=== PATIENT | female | born 1955 | race Two or more races ===

== ENCOUNTER 2019-12-16 08:09 | Inpatient (IN) | payer MEDICAID, OTHER ==
[~2019-12-16] VITALS: Ht 160 cm; Wt 68.4 kg
[2019-12-16] VITALS (33 sets, daily range): BP systolic 56–124; BP diastolic 36–77
[2019-12-16] MEDS ORDERED: ETOMIDATE (2MG/ML) 20ML VIAL IV ONE ×2 (08:37→08:45)
[2019-12-16] MEDS ORDERED: SUCCINYLCHOLINE CHLORIDE 20 MG/ML 10ML VIAL IV ONE ×2 (08:37→08:45)
[2019-12-16] MEDS ORDERED: MIDAZOLAM DRIP 50 mg/50mL 50 ML IV ONE (08:39)
[2019-12-16] MEDS ORDERED: PIPERACILLIN-TAZOB 3.375GM 100 ML IV ONE (09:00)
[2019-12-16] MEDS: MIDAZOLAM DRIP 50 mg/50mL 50 ML IV SCH ×3 (09:00→21:00)
[2019-12-16 09:12] LABS: Hemoglobin 8.7 g/dL (12.2-16.2)
[2019-12-16 09:15] LABS: Hematocrit 28.7 % (36.0-46.0); Mean Corpuscular Hgb Conc. 30.3 g/dL (32.0-36.0); Mean Corpuscular Volume 82.6 fL (80.0-100.0); Platelet Count (auto) 425 10^3/uL (140-450); Red Blood Cells 3.48 10^6/uL (4.0-5.20); Red Cell Distribution Width 19.7 % (11.8-14.3)
[2019-12-16 09:28] LABS: Calcium 10.9 mg/dL (8.5-10.1)
[2019-12-16 09:33] LABS: BUN/Creatinine Ratio 14.8; Bilirubin, Total 0.3 mg/dL (0.2-1.0); Total Protein 7.3 g/dL (6.4-8.2)
[2019-12-16 09:33] LABS: Lactic Acid w/Reflex 4.2 mmol/L (0.4-2.0)
[2019-12-16 09:35] LABS: White Blood Cell 49.7 10^3/uL (4.4-10.8)
[2019-12-16 09:36] LABS: Band Neutrophils % (manual) 0; Basophils % (manual) 0 (0.0-2.0); Blast Cells 0; Eosinophils % (manual) 0 (0-7); Metamyelocytes % 0; Myelocytes % 0; Promyelocytes % 0; Reactive Lymphocytes 0
[2019-12-16 09:50] LABS: Urine Bacteria NONE SEEN /hpf (None Seen); Urine Blood TRACE /uL (Negative); Urine Hyaline Cast FEW /lpf (0 - 2); Urine Mucus FEW (None Seen); Urine Specific Gravity 1.021 (1.001-1.035); Urine WBC 15 /hpf (0 - 5)
[2019-12-16] MEDS ORDERED: PROPOFOL 100 ML IV SCH (09:56)
[2019-12-16] MEDS ORDERED: SODIUM CHLORIDE 0.9% 500 ML IV ONE (10:00)
[2019-12-16] MEDS ORDERED: fentaNYL Drip 2500mCg/250mlNS 250 ML IV ONE (10:14)
[2019-12-16] MEDS: NOREPINEPHRINE 8 MG/250ML KIT 250 ML IV SCH ×2 (10:15→19:42)
[2019-12-16] MEDS: fentaNYL Drip 2500mCg/250mlNS 250 ML IV SCH (10:22)
[2019-12-16] MEDS ORDERED: IOHEXOL 350 MG/ML 100ML IJ ONE (10:28)
[2019-12-16 10:40] LABS: Lymphocytes % (manual) 2 (10.0-50.0); Monocytes % (manual) 9 (0-12)
[2019-12-16] MEDS: SODIUM CHLORIDE 0.9% 1,000 ML IV SCH (11:21)
[2019-12-16] MEDS ORDERED: levoFLOXacin 750MG 150 ML IV ONE ×2 (11:30→14:30)
[2019-12-16] MEDS ORDERED: VANCOMYCIN PER PHARMACY 0 MG IV SCH (11:30)
[2019-12-16] MEDS ORDERED: VANCOMYCIN 1GM/250ML 250 ML IV ONE (11:30)
[2019-12-16] MEDS ORDERED: ALBUTEROL SULF 2.5 MG/0.5ML(0.5%) NEB SOLN NEB PRN (11:30)
[2019-12-16] MEDS ORDERED: MORPHINE SULF INJ 2 MG/ML SYRINGE 1ML IV PRN (11:30)
[2019-12-16] MEDS ORDERED: NITROGLYCERIN 0.4 MG SL TAB SL PRN (11:30)
[2019-12-16] MEDS: IPRATROPIUM BROM 0.5 MG/2.5ML INH SOL NEB SCH ×2 (13:10→18:05)
[2019-12-16] MEDS: ALBUTEROL SULF 2.5 MG/0.5ML(0.5%) NEB SOLN NEB SCH ×2 (13:11→18:05)
--- NOTE | 2019-12-16 14:00 | NUR ---
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 Patient transfered to bed, connected to mechanical ventilator by therapist, ITZ at bedside. Patient connected to ICU monitoring, weighed by bedscale 68.4 KG/ 150.7 #, oriented to Cori Maloney, primary RN, unit, ventilator and sedation. NOTE: PT TRANSFERRED TO ICU BED. PT IS ON THE VENTILATOR WITH 8 FR ETT/22 AT THE LIP, TV 500, AC 12, PEEP OF 5 AND FIO2 OF 50%. LUNGS WITH INSPIRATORY CRACKLES/ EXPIRATORY RHONCHI ON THE RIGHT, AND INSPIRATORY AND EXPIRATORY RHONCHI ON THE LEFT. O2 SATS OF 99%. RR 25. TELE ST 126. PALPABLE PULSES TO ALL EXTREMITIES WITH +3 PITTING EDEMA (PE) TO BILATERAL ANKLES AND FEET AND +2 PE TO BOTH LEGS FROM THIGH TO LOWER LEGS.SCDS APPLIED TO BLE. ABD SOFT WITH HYPOACTIVEN TRIPP SOUNDS. RIGHT NARES NGT WITH +PLACEMENT VIA AUSCULTATION AND NO RESIDUAL NOTED. UNKNOWM LAST BM. KEATING CATHETER DRAINING CLEAR DARK YELLOW URINE. TURNED TO HER LEFT SIDE. PT WITH BLANCHBALE PINK TO HER SACRUM AND OPTIFOAM DRESSING APPLIED FOR SKIN PROTECTION. BED IN LOW POSITION WITH RAILS UP X4 FOR PT SAFETY. CONTINUE TO MONITOR.
--- NOTE | 2019-12-16 14:16 | NUR ---
HR 133, INCREASED FENTANYL TO 40 MCG/HR. CONTINUE TO MONITOR.
--- NOTE | 2019-12-16 14:28 | NUR ---
DR CLIFFORD/PHONE RECEIVED A PHONE CALL FROM DR CLIFFORD. PROVIDED HIM WITH THE PT'S INSURANCE AND MOST RECENT ABG. HE WILL BE COMING TO SEE THE PT LATER TODAY. NO NEW ORDERS.
--- NOTE | 2019-12-16 14:28 | NUR ---
BP 84/66. TITRATING UP ON LEVOPHED TO 12 MCG.
--- NOTE | 2019-12-16 16:08 | NUR ---
MD VISIT PT SEEN AND EXAMINED BY DR CLIFFORD. I UPDATED HIM ON THE PT'S ADMITTING CONDITION AND DIAGNOSIS. HE SPOKE AT GREAT LENGTH WITH THE PT'S AND THEIR DAUGHTER.
--- NOTE | 2019-12-16 16:50 | NUR ---
BP DOWN TO 46/12 . TURNED OFF SEDATION AND INCREASED LEVOPHED TO 16 MCG.
--- NOTE | 2019-12-16 16:55 | NUR ---
96/. TITRATING UP ON LEVOPHED I SLOWLY RESTART THE SEDATION AT REDUCED RATE.
--- NOTE | 2019-12-16 18:00 | NUR ---
RESPIRATORY AFTER SPEAKING WITH DR CLIFFORD BY PHONE. BARRON, RT, RECEIVED ORDERS TO CHANGE THE PT TO PRESSURE CONTROL SETTINGS OF PC WITH RATE OF 18, PRESSURE OF 24. 50% FIO2, PEEP OF 5.
--- NOTE | 2019-12-16 18:23 | NUR ---
PT'S HEART RATE STAYING IN THE 130'S WITH BRIEF RUNS UP TO 150 AND THEN BACK TO THE 130'S. RR 33 O2 SAT OF 100% AND BP 123/72. WILL TITRATE DOWN .
--- NOTE | 2019-12-16 18:27 | NUR ---
SPOKE WITH DR NICKERSON, BY PHONE, AND HE WOULD LIKE ME TO INCREASE THE SEDATION TO SEE IF THAT WILL MAKE THE PT MORE COMFORTABLE. INCREASED VERSED BACK TO 15 MG/HR AND FENTANYL TO 150 MCG/HR AND LEVOPHED TO 18 MCG/MIN. CONTINUE TO MONITOR. UPDATED PT'S FAMILY.
--- NOTE | 2019-12-16 18:39 | NUR ---
UPDATED FAMILY ON POC.
--- NOTE | 2019-12-16 19:01 | NUR ---
FAMILY/[facility] FAMILY AT THE BEDSIDE WITH THE [facility] FOR [facility] FAMILY PRAYER.
[2019-12-16] MEDS: VANCOMYCIN 1GM/250ML 250 ML IV SCH (19:41)
--- NOTE | 2019-12-16 20:10 | NUR ---
Opening Shift Note Report received from day shift RN. Assumed care at this time. Received pt on mechanical ventilator sedated on versed and fentanyl. on levophed gtt for blood pressure support. HR is sustaining in 130's. Pt breathing over ventilator in high 20's. Does not respond to verbal stimuli or tactile. pupils 3 and sluggish. positive cough and gag. moderate amount of thin white secretions out of ET tube. Very course lung sounds. Fernandez catheter intact secured below bladder draining light atilio urine. pt has +3 pitting edema in lower extremities. family at bed side. all questions and concerns addressed at this time. all alarms on and audible. Pt in full view of RN.
--- NOTE | 2019-12-16 20:10 | NUR ---
REPORT REPORT GIVEN TO TAMMY RNCHENTE. BEDSIDE CHECK DONE
--- NOTE | 2019-12-16 20:30 | NUR ---
REGINO CRAWFORD AT BEDSIDE, INFORMED OF PT'S HIGH HR AND NEED FOR MORE SEDATION SINCE PT IS BREATHING OVER VENTILATOR. NEW ORDERS FOR PROPOFOL.
[2019-12-16] MEDS: PROPOFOL 100 ML IV SCH (21:01)
[2019-12-16] MEDS ORDERED: ALBUMIN 5% 250 ML IV ONE (22:00)
--- NOTE | 2019-12-16 22:00 | NUR ---
SPOKE WITH HOSPITALIST INFORMING OF PT'S CONTINUOS HIGH HEART RATE IN 130'S AND ALMOST MAXED OUT ON LEVOPHED. NEW ORDERS RECEIVED.
--- NOTE | 2019-12-16 23:13 | NUR ---
NOT APPROPRIATE TO DO SEDATION VACATION AT THIS TIME Addendum: 12/16/19 at 2313 by CHENTE MICHELLE RN Amended: Links added.
[2019-12-17] VITALS (97 sets, daily range): BP systolic 80–137; BP diastolic 39–78
[2019-12-17] MEDS: ALBUTEROL SULF 2.5 MG/0.5ML(0.5%) NEB SOLN NEB SCH ×4 (00:04→18:00)
[2019-12-17] MEDS: IPRATROPIUM BROM 0.5 MG/2.5ML INH SOL NEB SCH ×4 (00:04→18:00)
[2019-12-17] MEDS: PROPOFOL 100 ML IV SCH (01:30)
[2019-12-17] MEDS: NOREPINEPHRINE 8 MG/250ML KIT 250 ML IV SCH ×3 (01:30→20:30)
[2019-12-17] MEDS: MIDAZOLAM DRIP 50 mg/50mL 50 ML IV SCH ×4 (01:30→20:30)
--- NOTE | 2019-12-17 03:15 | NUR ---
DESATURATION PT'S SATS STARTED TO DROP IN 80'S. RT AT BEDSIDE AND INCREASED FIO2 TO 60%. PT IMMEDIATELY RESPONDED AND SATURATIONS 95%.
[2019-12-17] MEDS: VASOPRESSIN 50 UNITS in D5W 5% 247.5 ML IV SCH ×2 (03:30→22:00)
--- NOTE | 2019-12-17 04:00 | NUR ---
TEMPERATURE PT FELT VERY WARM TO TOUCH. ORAL TEMPERATURE READING 99.9. AXILLARY TEMPERATURE READING 100.0. PLACED RECTAL PROBE READING 102.2 HOSPITALIST PAGED AT THIS TIME FOR ORDERS COOLING MEASURES INITIATED; ICE PACKS AND FAN Addendum: 12/17/19 at 0718 by CHENTE MICHELLE RN CORRECT TIME: 0500
[2019-12-17 04:08] LABS: Hemoglobin 7.2 g/dL (12.2-16.2)
[2019-12-17 04:13] LABS: Hematocrit 23.7 % (36.0-46.0); Mean Corpuscular Hemoglobin 24.9 pg (28.0-32.0); Mean Corpuscular Hgb Conc. 30.5 g/dL (32.0-36.0); Mean Corpuscular Volume 81.6 fL (80.0-100.0); Platelet Count (auto) 379 10^3/uL (140-450); Red Blood Cells 2.91 10^6/uL (4.0-5.20); Red Cell Distribution Width 18.6 % (11.8-14.3)
[2019-12-17 04:25] LABS: White Blood Cell 46.9 10^3/uL (4.4-10.8)
[2019-12-17 04:27] LABS: Band Neutrophils % (manual) 0; Basophils % (manual) 0 (0.0-2.0); Blast Cells 0; Metamyelocytes % 0; Myelocytes % 0; Promyelocytes % 0; Reactive Lymphocytes 0
[2019-12-17 04:29] LABS: Calcium 10.4 mg/dL (8.5-10.1); Magnesium 1.3 mg/dL (1.6-2.6); Potassium 3.5 mmol/L (3.5-5.1)
[2019-12-17 04:33] LABS: BUN/Creatinine Ratio 14.3; Bilirubin, Total 0.3 mg/dL (0.2-1.0); Phosphorus 2.4 mg/dL (2.5-4.90); Total Protein 6.1 g/dL (6.4-8.2)
--- NOTE | 2019-12-17 05:00 | NUR ---
CARES PT CLEANSED WITH CHG WIPES, PARTIAL LINEN CHANGE PERFORMED AT THIS TIME. SKIN INTEGRITY ASSESSED FOR ANY CHANGES; NONE NOTED. ORAL CARE RENDERED. PT TOLERATED WELL
[2019-12-17] MEDS: VANCOMYCIN 1GM/250ML 250 ML IV SCH ×2 (05:14→16:51)
[2019-12-17] MEDS ORDERED: ACETAMINOPHEN 650 mg PER 20 mL UD GT ONE (05:15)
[2019-12-17] MEDS ORDERED: ACETAMINOPHEN 650 mg PER 20 mL UD ONE (05:21)
[2019-12-17 05:32] LABS: Eosinophils % (manual) 1 (0-7); Lymphocytes % (manual) 2 (10.0-50.0); Monocytes % (manual) 5 (0-12)
--- NOTE | 2019-12-17 06:30 | NUR ---
TEMPERATURE RECHECK TEMP AT 100.4
--- NOTE | 2019-12-17 07:28 | NUR ---
END OF SHIFT NOTE REPORT GIVEN TO DAY SHIFT RN TO ASSUME CARE
--- NOTE | 2019-12-17 08:00 | NUR ---
OPENING NOTE Received patient on mechanical ventilator sedated on Versed at 15mg, Fentanyl at 200mcg and Diprivan 20mcg. Patient does not open eyes, does not follow commands, pupils reactive to light and no gag reflex. Sinus tachycardia in the 110's, pulses palpable on upper/lower extremities with pitting +3 edema to the lower extremities. NG tube to the right nare checked and verified via air bolus:clamped. Abdomen soft, non tender and non distended with positive bowel sounds with unknown bowel movement. Fernandez catheter draining to gravity. No skin breakdown and Optifoam to the sacral area for preventative measures. IV to the right subclavian(TLC): good blood return and flushes easily infusing Levophed GTT at 22mcg and Vasopressin at 0.04uits and 20G to the right wrist hep locked. Call light within reach and bed at lowest position. Will continue to monitor patient. Addendum: 12/17/19 at 1101 by CARLYN BOLANOS RN Central line is in the Right IJ. Disregard right subclavian.
--- NOTE | 2019-12-17 08:25 | NUR ---
MD Dr. Washington at bedside update on patient condition with new orders, this RN to input into system. Will continue to monitor patient closely.
[2019-12-17] MEDS: PHENYLEPHRINE IV 250 ML IV SCH ×2 (08:55→17:15)
[2019-12-17] MEDS: EPINEPHrine HCL 250 ML IV SCH (08:55)
--- NOTE | 2019-12-17 09:00 | NUR ---
SEDATION VACATION Sedation vacation not done secondary to patient on multiple vasopressor, will titrate sedation slowly for tactile/verbal stimuli response. Addendum: 12/17/19 at 1155 by CARLYN BOLANOS RN Amended: Links added.
--- NOTE | 2019-12-17 09:00 | NUR ---
SEDATION Diprivan decreased to 15mcg.
[2019-12-17] MEDS: levoFLOXacin 500MG 100 ML IV SCH (09:30)
--- NOTE | 2019-12-17 09:30 | NUR ---
SEDATION Diprivan decreased to 10mcg.
[2019-12-17] MEDS ORDERED: ENOXAPARIN SOD 40 MG/0.4 ML SYRINGE SC SCH (10:00)
--- NOTE | 2019-12-17 10:00 | NUR ---
SEDATION Diprivan decreased to 5mcg.
--- NOTE | 2019-12-17 10:30 | NUR ---
SEDATION Diprivan turned off and Versed decreased to 14mcg. Patient continues to not respond to tactile/verbal stimuli.
--- NOTE | 2019-12-17 11:10 | NUR ---
MD Called and spoke to Dr. Washington regarding thoracentesis: informed MD that radiologist will not be able to perform thoracentesis secondary to patient had lovenox and radiologist will be able to do it on Friday.
--- NOTE | 2019-12-17 11:17 | NUR ---
RT NOTE: PT ABG DRAWN WITH CRITICAL VALUES. RN NOTIFIED AND MD CLIFFORD CALLED. ORDERS GIVEN TO CHANGE VENT SETTINGS. PC P 28 RR 22 I-T .8 +5 WITH ANOTHER ABG IN ONE HOUR. VENT CHANGES MADE.
--- NOTE | 2019-12-17 11:18 | NUR ---
Spoke to Dr. Washington regarding ABG with new orders this RN to input into system. RT Sara aware of new orders.
--- NOTE | 2019-12-17 11:20 | NUR ---
RESPIRATORY RT Sara at bedside for vent changes: PC P: 28 RR: 22 I-TIME: .8 PEEP:+5
[2019-12-17] MEDS ORDERED: SODIUM BICARBONATE 8.4 % INJ 50ML VIAL IV ONE (11:30)
--- NOTE | 2019-12-17 12:30 | NUR ---
WOUND CARE NOTE: PATIENT RECENTLY ADMITTED TO [facility] WITH DIAGNOSIS OF ACUTE RESPIRATORY FAILURE. SHE IS INTUBATED, SEDATED. PATIENT ADDED TO SKIN INTEGRITY MONITORING BY WOUND CARE TEAM. PATIENT'S LAZARUS SCORE ASSESSED AT 10 AT THIS TIME. PER BEDSIDE NURSE, PATIENT IS WOUND FREE AT THIS TIME. SKIN/WOUND CARE PLAN IMPLEMENTED. PATIENT WOULD BENEFIT FROM FREQUENT TURN SCHEDULE Q 2 HOURS/PRN CONDITION PERMITS, WITH PRESSURE REDISTRIBUTION USING PILLOWS/WEDGES, BID/PRN APPLICATION WITH MOISTURE BARRIER CREAM, OPTIFOAM GENTLE SACRAL DRESSING PREVENTATIVE, DIETARY CONSULT FOR LOW LAZARUS SCORES, SKIN/WOUND CARE PLAN, CONTINUED MONITORING BY WOUND CARE TEAM.
[2019-12-17] MEDS ORDERED: AMIODARONE HCL 150 MG in D5W 5% 100 ML IV ONE (15:15)
--- NOTE | 2019-12-17 15:20 | NUR ---
AFIB RVR PATIENTS HEART RATE RHYTHM CHANGED TO AFIB RVR BPM 180-200. SPO[address] Radha TERRAZAS FOR ORDERS. TELEPHONE ORDER VERIFIED AND IMPLEMENTED. PATIENTS FAMILY AT BEDSIDE
[2019-12-17] MEDS ORDERED: AMIODARONE HCL 900 MG in DEXTROSE 500 ML IV SCH (15:30)
[2019-12-17] MEDS: fentaNYL Drip 2500mCg/250mlNS 250 ML IV SCH (15:31)
[2019-12-17] MEDS ORDERED: POTASSIUM EFFERVESENT TAB 25 MEQ PO ONE (16:30)
[2019-12-17] MEDS: MAGNESIUM SULFATE 1GM/100ML 100 ML IV SCH ×3 (16:51→22:00)
[2019-12-17 18:03] LABS: Hematocrit 22.4 % (36.0-46.0)
[2019-12-17 18:09] LABS: Mean Corpuscular Hemoglobin 24.6 pg (28.0-32.0); Mean Corpuscular Hgb Conc. 29.6 g/dL (32.0-36.0); Mean Corpuscular Volume 83.2 fL (80.0-100.0); Platelet Count (auto) 276 10^3/uL (140-450); Red Cell Distribution Width 18.9 % (11.8-14.3)
[2019-12-17 18:16] LABS: INR 1.46 (0.9-1.15); Partial Thromboplastin Time 41.5 sec (23.64-32.05); White Blood Cell 47.8 10^3/uL (4.4-10.8)
[2019-12-17 18:17] LABS: Albumin 1.5 g/dL (3.4-5.0); Hemoglobin 6.6 g/dL (12.2-16.2); Magnesium 1.3 mg/dL (1.6-2.6); Potassium 3.5 mmol/L (3.5-5.1)
[2019-12-17 18:18] LABS: Basophils % (manual) 0 (0.0-2.0); Blast Cells 0; Eosinophils % (manual) 0 (0-7); Metamyelocytes % 0; Myelocytes % 0; Promyelocytes % 0; Reactive Lymphocytes 0
[2019-12-17 18:20] LABS: % Iron Saturation 11.8 % (15-50); BUN/Creatinine Ratio 19.6; Bilirubin, Direct 0.2 mg/dL (0-0.2); Bilirubin, Total 0.3 mg/dL (0.2-1.0); Total Protein 5.6 g/dL (6.4-8.2)
--- NOTE | 2019-12-17 18:21 | NUR ---
[place] TX HELD DUE TO HR 150-160, BS CLEAR BILATERALLY
[2019-12-17 18:26] LABS: Folate (Folic Acid) 6.56 ng/mL (5.38-24)
--- NOTE | 2019-12-17 19:00 | NUR ---
HIGH HEART RATE 140-165, SBP FALLING QUICKLY. LEVOPHED INCREASED TO STABILIZE.
--- NOTE | 2019-12-17 19:20 | NUR ---
TYPE AND SCREEN DONE
[2019-12-17] MEDS ORDERED: DIGOXIN (250MCG/ML) 2 ML AMPULE ONE (19:40)
--- NOTE | 2019-12-17 19:42 | NUR ---
SPOKE WITH DR MERAZ. AWARE OF OUR SITUATION CONCERNING THE AFIB RVR, LOW BLOOD PRESSURE, VASOPRESSORS. ORDER RECEIVED FOR DIGOXIN.
[2019-12-17] MEDS ORDERED: DIGOXIN (250MCG/ML) 2 ML AMPULE IV ONE ×2 (19:45)
[2019-12-17] MEDS ORDERED: DIGOXIN (250MCG/ML) 2 ML AMPULE IV SCH (19:45)
--- NOTE | 2019-12-17 20:00 | NUR ---
ADMITTED ON 12/16/2019 WITH DYSPNEA FROM HOME. LOW O2 SATURATION. INTUBATED IN ER. PALE. EMANUEL. LUNGS COARSE. ORAL CARE DONE. SUCTIONED THE ETT FOR A MODERATE AMOUNT OF OFF WHITE SECRETIONS. SLIGHT IMPROVEMENT IN COARSE LUNG SOUNDS. ABDOMEN SOFT. NGT RIGHT NARE CLAMPED. RESIDUAL 480CC OF DARK BROWN THIN LIQUID. SCABS ON LOWER LIP. NO COUGH, BLINK OR GAG. NO BM YET. KEATING IN PLACE DRAINING YELLOW LIQUID TO DOWN DRAIN BAG. SEDIMENT NOTED IN KEATING LINE. SCDS ON. ALL PULSES WEAK. GENERALIZED 3+ PITTING EDEMA. HEELS OFF BED. COCCYX SHOWS NO SKIN BREAKDOWN.
[2019-12-17 20:01] LABS: Band Neutrophils % (manual) 1; Lymphocytes % (manual) 7 (10.0-50.0); Monocytes % (manual) 4 (0-12)
--- NOTE | 2019-12-17 20:30 | NUR ---
CONVERTED FROM AFIB RVR 163 TO A SINUS TACHYCARDIA OF 98-103. SBP HAS COME UP.
--- NOTE | 2019-12-17 21:00 | NUR ---
CHECKED WITH BLOOD BANK. UNITS OF BLOOD WILL SOON BE READY
[2019-12-17] MEDS: AMIODARONE HCL 900 MG in DEXTROSE 500 ML IV SCH (21:30)
--- NOTE | 2019-12-17 21:30 | NUR ---
AMIODARONE DECREASED TO .5 = 16.66CC/HR
--- NOTE | 2019-12-17 21:59 | NUR ---
STARTED THE FIRST UNIT OF PACKED CELLS
--- NOTE | 2019-12-17 22:00 | NUR ---
LAST BAG OF MAGNESIUM SULFATE REPLACEMENT HUNG.
--- NOTE | 2019-12-17 22:29 | NUR ---
NO TEMP INCREASE, NO RESPIRATORY DISTRESS, NO SKIN RASH OR NEW DECREASE IN BLOOD PRESSURE OR SPIKE IN BLOOD PRESSURE. NO REACTION TO BLOOD INFUSION
--- NOTE | 2019-12-17 23:00 | NUR ---
WITH THE DECREASE IN HEART RATE AND THE UNIT OF BLOOD RUNNING, THE SBP HAS COME UP. DECREASING THE FENTANYL, VERSED AND LEVOPHED. PATIENT HAS NO GAG OR COUGH.
[2019-12-18] VITALS (106 sets, daily range): BP systolic 81–217; BP diastolic 42–145
--- NOTE | 2019-12-18 00:15 | NUR ---
DR MERAZ HERE. DISCUSSED THE SUCCESS OF HEART RATE CONVERSION. HE ORDERED CVP PRESSURE TO BE MONITORED. CVP 9. NSR 97. SBP: WEANING DOWN THE VASOPRESSIN. SEDATION: WEANING DOWN THE VERSED AND FENTANYL. LUNGS REMAIN COARSE. REPOSITIONED. ORAL CARE DONE. ABDOMEN SOFT. KEATING: SEDIMENT. IVS SHOW NO REDNESS OR SWELLING. NGT : 10CC OF DARK BROWN/GREEN. DR MERAZ HERE TO VISUALIZE THE CVP WAVEFORM. DR MERAZ FEELS SHE MAY HAVE SOME TR, THAT IS WHY THE WAVEFORM IS IT IS.
[2019-12-18] MEDS: MAGNESIUM SULFATE 1GM/100ML 100 ML IV SCH ×2 (00:24→00:59)
[2019-12-18] MEDS: ALBUTEROL SULF 2.5 MG/0.5ML(0.5%) NEB SOLN NEB SCH ×4 (00:24→18:31)
[2019-12-18] MEDS: IPRATROPIUM BROM 0.5 MG/2.5ML INH SOL NEB SCH ×4 (00:24→18:31)
--- NOTE | 2019-12-18 00:30 | NUR ---
CVP 9
--- NOTE | 2019-12-18 01:30 | NUR ---
SMALL GAG. NO COUGH. EMANUEL. RR 25. LAST MAGNESIUM SULFATE RIDER FINISHING. TOTAL OF 5 MAGNESIUM RIDERS GIVEN.
--- NOTE | 2019-12-18 02:00 | NUR ---
VASOPRESSIN OFF. SBP 103 MAP 70
[2019-12-18] MEDS: DIGOXIN (250MCG/ML) 2 ML AMPULE IV SCH ×2 (02:12→08:19)
[2019-12-18] MEDS: NOREPINEPHRINE 8 MG/250ML KIT 250 ML IV SCH ×2 (02:59→12:18)
--- NOTE | 2019-12-18 04:40 | NUR ---
2ND UPC FINISHED. CXR COMPLETED. PATIENT WOKE UP AND HER HEART RATE IS NOW 133 SINUS TACHYCARDIA. O2 SATURATION 91%. RR 22-27. TEMP 100 R.
--- NOTE | 2019-12-18 05:00 | NUR ---
CHG BATH AND PARTIAL LINEN CHANGE. NO SKIN BREAKDOWN. SCDS OFF BRIEFLY AND REAPPLIED.
[2019-12-18] MEDS: VANCOMYCIN 1GM/250ML 250 ML IV SCH ×2 (05:19→18:23)
[2019-12-18] MEDS: SODIUM CHLORIDE 0.9% 1,000 ML IV SCH (05:57)
--- NOTE | 2019-12-18 06:23 | NUR ---
LAST 2 HOURS HAVE STARTED SUCTIONING COPIOUS AMOUNTS OF WHITE SECRETIONS FROM THE ETT. ORAL CARE DONE. MOISTURIZER TO LIPS
--- NOTE | 2019-12-18 07:03 | NUR ---
AM LABS SENT
--- NOTE | 2019-12-18 08:30 | NUR ---
Family updated on pt status Family of PAULA RUFFIN updated on patient's status and condition. All questions and concerns addressed. verbalized understanding.
[2019-12-18 08:31] LABS: Hematocrit 33.1 % (36.0-46.0); Hemoglobin 10.9 g/dL (12.2-16.2); Mean Corpuscular Hemoglobin 27.9 pg (28.0-32.0); Mean Corpuscular Hgb Conc. 33.1 g/dL (32.0-36.0); Mean Corpuscular Volume 84.3 fL (80.0-100.0); Platelet Count (auto) 226 10^3/uL (140-450); Red Blood Cells 3.93 10^6/uL (4.0-5.20); Red Cell Distribution Width 16.7 % (11.8-14.3)
[2019-12-18 08:33] LABS: INR 1.21 (0.9-1.15); Partial Thromboplastin Time 40.4 sec (23.64-32.05)
[2019-12-18 08:37] LABS: Basophils % (manual) 0 (0.0-2.0); Blast Cells 0; Eosinophils % (manual) 0 (0-7); Lymphocytes % (manual) 0 (10.0-50.0); Metamyelocytes % 0; Myelocytes % 0; Promyelocytes % 0; Reactive Lymphocytes 0
[2019-12-18 08:38] LABS: White Blood Cell 48.2 10^3/uL (4.4-10.8)
[2019-12-18 08:40] LABS: Albumin 1.6 g/dL (3.4-5.0); Calcium 10.5 mg/dL (8.5-10.1); Magnesium 2.3 mg/dL (1.6-2.6); Potassium 3.2 mmol/L (3.5-5.1)
[2019-12-18 08:46] LABS: BUN/Creatinine Ratio 18.5; Bilirubin, Direct 0.3 mg/dL (0-0.2); Bilirubin, Total 0.6 mg/dL (0.2-1.0); Total Protein 5.9 g/dL (6.4-8.2)
[2019-12-18] MEDS: EPINEPHrine HCL 250 ML IV SCH (08:55)
--- NOTE | 2019-12-18 08:55 | NUR ---
DESATURATION PATIENTS NOTED TO DESAT FROM 93-94% TO 67%. 100% SUPPLEMENT PROVIDED. PATIENT SUCTIONED VIA ETT, LARGE, THICK CREAMY SECRETIONS NOTED. FI02 INCREASED BACK TO 93-94%. WILL CONTINUE TO MONITOR CLOSELY.
--- NOTE | 2019-12-18 09:15 | NUR ---
DESATURATION PATIENT AGAIN DESATURATED TO LOW 80'S, NO ETT SECRETIONS NOTED, LUNGS REMAINS COURSE. R.T PAGED TO NOTIFY.
--- NOTE | 2019-12-18 09:20 | NUR ---
RT NOTE: FIO2 INCRERASED TO 60%, THEN 70% AND ENDING AT 80% DUE TO DESATURATION IN THE HIGH 80'S TO ACHIEVE A SATURATION OF 94%. RN ARIES AWARE. ETS FOR NO RETURN. BREATH SOUNDS ARE COARSE. ALARMS ARE ON AND AUDIBLE. PT. TEMP. 101.5F. COOLING MEASURES IN PLACE.
--- NOTE | 2019-12-18 09:25 | NUR ---
Cooling Measures applied. Patient currently has temp of 101.2 , cooling blanket in place.
[2019-12-18] MEDS: levoFLOXacin 500MG 100 ML IV SCH (09:51)
[2019-12-18] MEDS: MIDAZOLAM DRIP 50 mg/50mL 50 ML IV SCH (09:52)
[2019-12-18] MEDS: PHENYLEPHRINE IV 250 ML IV SCH ×2 (09:55→18:15)
[2019-12-18] MEDS ORDERED: DIGOXIN (250MCG/ML) 2 ML AMPULE IV SCH (10:00)
--- NOTE | 2019-12-18 10:00 | NUR ---
SOLAR FABRICATION TECHNICIAN AT BEDSIDE DR. SHEARER UPDATED ON PATIENTS STATUS. MD AWARE OF PATIENTS DESATURATION NOTED TO 67% AND 80% WITH INCREASE FI02. BEDSIDE U/S PERFORMED TO LEFT LATERAL CHEST. NO FLUID NOTED FOR THORACENTESIS AT THIS TIME. SEE NEW ORDERS. R.T AT BEDSIDE.
[2019-12-18 10:18] LABS: Band Neutrophils % (manual) 6; Monocytes % (manual) 3 (0-12)
[2019-12-18] MEDS ORDERED: FUROSEMIDE 40 MG/4 ML VIAL IV ONE (10:30)
--- NOTE | 2019-12-18 12:00 | NUR ---
NEUROLOGIST AT BEDSIDE DR. PAVON UPDATED ON PATIENT STATUS. AWARE OF TWITCHING NOTED DURING STIMULI. 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 MD VERBALIZED UNDERSTANDING. MD UPDATED FAMILY RE: S/P CPR COMPLICATIONS. QUESTIONS AND CONCERNS ADDRESSED. SEE MD NOTES/ ORDERS. Addendum: 12/18/19 at 1559 by Fabby Mar RN WRONG PATIENT
[2019-12-18] MEDS: fentaNYL Drip 2500mCg/250mlNS 250 ML IV SCH (12:18)
[2019-12-18] MEDS: POTASSIUM CHL 20MEQ/100ML 100 ML IV SCH ×2 (12:18→14:13)
--- NOTE | 2019-12-18 13:00 | NUR ---
HOSPITALIST DR. WALTON AT BEDSIDE. SPOKE TO SON AND AT BEDSIDE RE: PATIENTS STATUS. UPDATED ON PLAN OF CARE. QUESTIONS AND CONCERNS ADDRESSED. SEE NEW ORDERS. Addendum: 12/18/19 at 1407 by Fabby Mar RN INCORRECT PATIENT.
--- NOTE | 2019-12-18 13:30 | NUR ---
ONCOLOGIST DR. REYNOLDS AT BEDSIDE. MD UPDATED SON AT BEDSIDE ON PATIENTS STATUS. SEE MD NOTES/ ORDERS.
--- NOTE | 2019-12-18 13:55 | NUR ---
GASTRIC OUTPUT PATIENT NOTED TO HAVE LIGHT BROWN SECRETIONS VIA NG. PATIENT PLACED ON LIS. NEW ORDERS FOR PROTONIX IV IN PLACE. SON AT BEDSIDE NOTIFIED OF STRESS ULCERS RELATED TO ICU PATIENT. ALSO EDUCATED ON DVT PROPHYLAXIS SUCH SCD'S. QUESTIONS AND CONCERNS ADDRESSED.
[2019-12-18] MEDS ORDERED: PANTOPRAZOLE 40 MG/10 ML VIAL INJ IV ONE (14:00)
--- NOTE | 2019-12-18 14:02 | NUR ---
RESEARCH AND DEVELOPMENT MANAGER AT BEDSIDE.
--- NOTE | 2019-12-18 17:45 | NUR ---
WOUND CARE NOTE: IN TO SEE PATIENT AT THIS TIME FOR SKIN INTEGRITY. BEDSIDE NURSE REQUESTED WOUND ASSESSMENT, PATIENT HAS DEVELOPED MILD MASD/INTERTRIGO TO SACRUM TO PERINEUM. SKIN IS BRIGHT RED, INTACT. WOUND PHOTO TAKEN AT THIS TIME. REAPPLIED ZGUARD, OPTIFOAM GENTLE SACRAL DRESSING TO AREA. PATIENT CONTINUES TO BE INTUBATED, SEDATED. SHE CONTINUES TO BE ON VASOPRESSORS. SHE HAS GENERALIZED EDEMA, ESPECIALLY TO BLE/FEET. PATIENT'S FEET/HEELS ELEVATED USING TWO PILLOWS. PATIENT REPOSITIONED ONTO RIGHT SIDE, REDISTRIBUTING PRESSURE POINTS USING PILLOWS. RECOMMEND: SPECIALTY AIR MATTRESS PREVENTATIVE, CLOSE MONITORING OF BILATERAL FEET/HEELS, WITH ELEVATION USING TWO PILLOWS TO COMPLETELY OFFLOAD HEELS, CONTINUATION WITH ALL WOUND CARE ORDERS PREVIOUSLY PRESCRIBED BY MD. WOUND CARE TEAM WILL CONTINUE TO MONITOR. Addendum: 12/18/19 at 1849 by Jovanna Guerrero RN Amended: Links added.
--- NOTE | 2019-12-18 20:00 | NUR ---
ADMITTED FROM HOME WITH SEVERE DYSPNEA. INTUBATED IN ER. HISTORY OF LUNG CA. ETT TO VENTILATOR. ON PC VENTILATION. NOW ON PEEP OF 10. FOLLOWING THE VENT RATE. BILATERALLY COARSE, BUT LESS SO THAN YESTERDAY. BEGAN SUCTIONING OFF WHITE SECRETIONS BEGINNING AROUND 0300 TODAY. SUCTIONED A MODERATE AMOUNT OF OFF WHITE SECRETIONS. ORAL CARE DONE. MOISTURIZER TO LIPS. SMALL SCABS ON LOWER LIP. RIGHT NARE NGT TO LIS. COFFEE GROUND LIQUID RETURNED IN SMALL AMOUNTS. ABDOMEN SOFT. RIJ TRIPLE LUMEN CATHETER WITH THE FOLLOWING DRIPS: AMIODARONE, VERSED, FENTANYL AND LEVOPHED. DECREASING THE SEDATION SLOWLY. WEAK GAG. NOT MOVING EXTREMITIES. 3+ PITTING EDEMA TO ALL EXTREMITIES. KEATING IN PLACE DRAINING CLEAR YELLOW LIQUID IN ADEQUATE AMOUNTS. RECEIVED LASIX ON DAYSHIFT. NO BM. PLACED ON PROTONIX TODAY.
[2019-12-18] MEDS ORDERED: POTASSIUM CHL 20MEQ/100ML 100 ML IV ONE (20:30)
[2019-12-18] MEDS: PROPOFOL 100 ML IV SCH (20:32)
[2019-12-18] MEDS: AMIODARONE HCL 900 MG in DEXTROSE 500 ML IV SCH (21:30)
[2019-12-18] MEDS: VASOPRESSIN 50 UNITS in D5W 5% 247.5 ML IV SCH (22:00)
[2019-12-18] MEDS: PANTOPRAZOLE 40 MG/10 ML VIAL INJ IV SCH (22:00)
--- NOTE | 2019-12-18 22:00 | NUR ---
WEANING DOWN THE VERSED. PATIENT HAS A VERY WEAK GAG. DOES NOT ATTEMPT TO BLINK , COUGH OR MOVE EXTREMITIES. ORAL CARE. REPOSITIONED TO HER LEFT SIDE. ICE TO BACK OF NECK FOR A TEMP OF 100.6 RECTALLY. LUNGS REMAIN COARSE BUT LESS SO. NO NGT OUTPUT. NO BM. URINE REMAINS CLEAR AND IN ADEQUATE AMOUNTS.
--- NOTE | 2019-12-18 23:25 | NUR ---
VERSED OFF. + GAG AND COUGH. SUCTIONED A MODERATE AMOUNT OF OFF WHITE SECRETIONS BRINGING THE PIP FROM 37 TO 33
[2019-12-19] VITALS (103 sets, daily range): BP systolic 80–116; BP diastolic 43–69
--- NOTE | 2019-12-19 | NUR ---
WEANING DOWN THE FENTANYL AND LEVOPHED, SLOWLY. NO GAG OR COUGH THIS SUCTIONING. 3 ICE BAGS ON. FAN ON FOR TEMP OF100.6. LUNGS LIGHTLY COARSE. ETT SECRETIONS OFF WHITE. ABDOMEN SOFT. TOTAL OF 60CC OF DARK BROWN LIQUID FROM THE NGT. NGT ON CLAMP MODE. OPEN IT UP Q 2 HOURS. NO BM. 3+ PITTING EDEMA PERSISTS. FAMILY NOT STAYING THE NIGHT.
[2019-12-19] MEDS: IPRATROPIUM BROM 0.5 MG/2.5ML INH SOL NEB SCH ×4 (00:11→18:31)
[2019-12-19] MEDS: ALBUTEROL SULF 2.5 MG/0.5ML(0.5%) NEB SOLN NEB SCH ×4 (00:11→18:31)
--- NOTE | 2019-12-19 02:00 | NUR ---
ALL SEDATION NOW OFF. RR 26-28. O2 SATURATION 94%. TEMP COMING DOWN. FAN OFF. SINUS TACHYCARDIA.
[2019-12-19] MEDS: PHENYLEPHRINE IV 250 ML IV SCH ×3 (02:35→13:28)
--- NOTE | 2019-12-19 04:00 | NUR ---
PATIENT OFF ALL SEDATION FROM MIDNIGHT UNTIL 0400. PATIENT DID NOT WAKE UP. OCCASIONAL COUGH AND GAG. NO MOVEMENT OF EXTREMITIES. RR DID CLIMB UP TO 29. FENTANYL REINSTATED TO 100 MCG'HR. RR IS NOW DOWN TO 25. WBC CALLED TO ME FROM LABORATORY. VERY HIGH WBC. SINUS TACHYCARDIA 110-114. NO ECTOPY. IV SITE SHOWS NO REDNESS OR SWELLING.
[2019-12-19 04:27] LABS: Hemoglobin 10.8 g/dL (12.2-16.2)
[2019-12-19 04:31] LABS: Mean Corpuscular Hemoglobin 26.2 pg (28.0-32.0); Mean Corpuscular Hgb Conc. 30.9 g/dL (32.0-36.0); Mean Corpuscular Volume 84.8 fL (80.0-100.0); Platelet Count (auto) 196 10^3/uL (140-450); Red Blood Cells 4.12 10^6/uL (4.0-5.20); Red Cell Distribution Width 17.3 % (11.8-14.3)
[2019-12-19 04:33] LABS: Albumin 1.6 g/dL (3.4-5.0); BUN/Creatinine Ratio 20.8; Calcium 11.8 mg/dL (8.5-10.1); Magnesium 1.5 mg/dL (1.6-2.6)
[2019-12-19 04:36] LABS: Bilirubin, Total 0.5 mg/dL (0.2-1.0)
[2019-12-19 04:40] LABS: INR 1.34 (0.9-1.15); White Blood Cell 62.1 10^3/uL (4.4-10.8)
[2019-12-19 04:42] LABS: Basophils % (manual) 0 (0.0-2.0); Blast Cells 0; Eosinophils % (manual) 0 (0-7); Metamyelocytes % 0; Myelocytes % 0; Promyelocytes % 0; Reactive Lymphocytes 0
[2019-12-19 04:54] LABS: Bilirubin, Direct 0.3 mg/dL (0-0.2)
[2019-12-19] MEDS: VANCOMYCIN 1GM/250ML 250 ML IV SCH ×2 (05:25→19:21)
--- NOTE | 2019-12-19 06:00 | NUR ---
CHANGED HER BED TO A SPECIALTY BED DUE TO CINDY ANAL REDNESS. NO STOOLING. CHG BATH GIVEN. COMPLETE LINEN CHANGE. LEVOPHED HAS BEEN WEANED FAR I CAN. NO ATRIAL FIB TONIGHT. VERSED REMAINS OFF. FENTANYL ADDED TO DECREASE THE RESPIRATORY WORKLOAD. RATE WENT HIGH 29. LEVOPHED SYSTOLIC 89 TO 100. NGT SECRETIONS REMAIN A DARK BROWN LIQUID. LIVER ENZYMES UP . SCDS ON. CVP HAS BEEN 7 TO 9 TONIGHT. FIO2 WEANED FROM 45 TO 40% ONLY.
[2019-12-19 06:09] LABS: Band Neutrophils % (manual) 13; Lymphocytes % (manual) 2 (10.0-50.0); Monocytes % (manual) 1 (0-12)
[2019-12-19] MEDS: EPINEPHrine HCL 250 ML IV SCH (08:55)
--- NOTE | 2019-12-19 09:02 | NUR ---
TILE PROFESSIONAL AT BEDSIDE. AWARE OF BLOOD GAS. NEW ORDERS IN PLACE. R.T AT BEDSIDE AWARE.
[2019-12-19] MEDS: fentaNYL Drip 2500mCg/250mlNS 250 ML IV SCH ×2 (09:22→14:52)
[2019-12-19] MEDS ORDERED: FUROSEMIDE 40 MG/4 ML VIAL IV ONE (10:00)
[2019-12-19] MEDS: PANTOPRAZOLE 40 MG/10 ML VIAL INJ IV SCH ×2 (11:12→22:09)
[2019-12-19] MEDS: levoFLOXacin 500MG 100 ML IV SCH (11:12)
[2019-12-19] MEDS: Jevity 1.2 Cal/Fiber 1 Liter GT SCH (13:27)
[2019-12-19] MEDS: MAGNESIUM SULFATE 1GM/100ML 100 ML IV SCH ×3 (13:27→15:00)
[2019-12-19] MEDS: ERTAPENEM SOD INJ 1 GM in SODIUM CHL 0.9% 50 ML IV SCH (14:51)
[2019-12-19] MEDS: NOREPINEPHRINE 8 MG/250ML KIT 250 ML IV SCH (14:53)
--- NOTE | 2019-12-19 15:00 | NUR ---
Central Line Dressing Change Central line dressing change done with a sterile technique. Cleansed with chloraprep scrub. Bio-patch as available. Occlusive dressing applied. See e-MAR for medications given during this visit.
--- NOTE | 2019-12-19 15:26 | NUR ---
Family updated on pt status Family of PAULA RUFFIN updated on patient's status and condition. All questions and concerns addressed. Son verbalized understanding.
--- NOTE | 2019-12-19 16:11 | NUR ---
Nutrition Assessment Notes Please refer to link for full assessment notes. Est energy needs: 6350-1791 kcals (25-30 kcal/kgBW) Est protein needs: 55-68 gms/day (0.8-1.0 gm/kgBW) Will continue to monitor and reassess prn. Addendum: 12/19/19 at [address] Amended: Links added.
--- NOTE | 2019-12-19 16:30 | NUR ---
Family meeting MD requested to speak to son and update on patient status. Son able to gather all siblings and father and have a phone meeting with Md. Md updated family on patients status. Questions and concerns addressed. MD reviewed poor prognosis. See md notes/ orders.
--- NOTE | 2019-12-19 18:00 | NUR ---
GASTRIC RESIDUAL 20ML OF GASTRIC RESIDUAL NOTED. TF REMAINS AT 10ML/HR VIA NG. ASPIRATION PRECAUTIONS REMAINS IN PLACE.
[2019-12-19] MEDS: FUROSEMIDE 40 MG/4 ML VIAL IV SCH (19:21)
[2019-12-19] MEDS: AMIODARONE HCL 900 MG in DEXTROSE 500 ML IV SCH (20:00)
[2019-12-19] MEDS ORDERED: POTASSIUM EFFERVESENT TAB 25 MEQ GT ONE (20:00)
--- NOTE | 2019-12-19 20:00 | NUR ---
ADMITTED WITH DYSPNEA AND 3 YEAR DIAGNOSIS OF LUNG CANCER. INTUBATED IN OUR ER. EMANUEL. ORALLY INTUBATED. RIGHT NARE NGT TO INTERMITTENT SUCTION. DRNG IS A SMALL AMOUNT OF DARK BROWN. ORAL CARE DONE. LUNGS COARSE. SUCTIONED ETT FOR A SMALL AMOUNT OF OFF WHITE SECRETIONS. ABDOMEN SOFT. NO BM. KEATING IN PLACE DRAINING CLEAR YELLOW LIQUID IN ADEQUATE AMOUNTS. 2-3+ PITTING EDEMA IN EXTREMITIES. SCDS ON. TEMP SUBNORMAL. HEATING BLANKET UNDER PATIENT TURNED ON. SHEET AND WARM BLANKET PLACED ON TOP OF PATIENT. DECREASED THE FENTANYL. RR IS 22-24. NSR WITHOUT ECTOPY. ON AMIODARONE DRIP. SPECIALTY BED. KCL EFFERVESCENT INSTILLED. BEFORE THAT THE NGT RESIDUAL WAS 60CC. TUBE FEEDING STOPPED FOR AN HOUR. ALL PULSES ARE WEAK. BOTH FEET ARE COOL. HEELS OFF BED. CINDY AREA AROUND ANUS IS PINK.
[2019-12-19] MEDS: PROPOFOL 100 ML IV SCH (20:32)
--- NOTE | 2019-12-19 22:00 | NUR ---
DIURESING. SBP DROPPING. LEVOPHED INCREASED. WARMING BLANKET OFF
[2019-12-20] VITALS (108 sets, daily range): BP systolic 83–121; BP diastolic 51–71
--- NOTE | 2019-12-20 | NUR ---
TEMP 100.6 RECTALLY. ICE BAG ON PATIENT.
--- NOTE | 2019-12-20 | NUR ---
SBP DROPPED AGAIN. INCREASED THE LEVOPHED. O2 SATURATION DROPPED TO 88. SUCTIONED AND IT CAME BACK TO 95%. RT HAD DROPPED THE FIO2 TO 45% AND THEN INCREASED IT TO 60%. SAT NOW IS 97%.
[2019-12-20] MEDS: ALBUTEROL SULF 2.5 MG/0.5ML(0.5%) NEB SOLN NEB SCH ×4 (00:21→18:10)
[2019-12-20] MEDS: IPRATROPIUM BROM 0.5 MG/2.5ML INH SOL NEB SCH ×4 (00:21→18:10)
--- NOTE | 2019-12-20 02:00 | NUR ---
BP MAP IS LOWER. SYSTOLIC BP IS DROPPING AGAIN. LEVOPHED IS BEING TITRATED UP.SINUS TACHYCARDIA IS COMING DOWN. WAS 127 AND IS NOW 114. PATIENT IS NOT MOVING. THERE IS NO COUGH OR GAG. JEVITY AT 10CC/HR FOR 2 HOURS. RESIDUAL FROM THE NGT IS 60CC. TUBE FEEDING SHUT OFF.
--- NOTE | 2019-12-20 02:26 | NUR ---
SBP DROPPED. LEVOPHED INCREASED. RR 22-24. FENTANYL DECREASED.
[2019-12-20] MEDS: PHENYLEPHRINE IV 250 ML IV SCH ×3 (03:35→20:15)
--- NOTE | 2019-12-20 04:00 | NUR ---
SEDATION VACATION. RR 20. O2 SATURATION 96%. HR 108. LUNGS COARSE. FENTANYL OFF
[2019-12-20 04:46] LABS: Mean Corpuscular Volume 84.9 fL (80.0-100.0)
[2019-12-20 04:52] LABS: Hematocrit 32.9 % (36.0-46.0); Hemoglobin 10.4 g/dL (12.2-16.2); Mean Corpuscular Hgb Conc. 31.7 g/dL (32.0-36.0); Platelet Count (auto) 166 10^3/uL (140-450); Red Blood Cells 3.88 10^6/uL (4.0-5.20); Red Cell Distribution Width 17.4 % (11.8-14.3)
[2019-12-20] MEDS: VANCOMYCIN 1GM/250ML 250 ML IV SCH ×3 (04:55→21:20)
[2019-12-20 05:05] LABS: Albumin 1.5 g/dL (3.4-5.0); Calcium 12.6 mg/dL (8.5-10.1); Potassium 3.7 mmol/L (3.5-5.1)
[2019-12-20 05:06] LABS: White Blood Cell 56.6 10^3/uL (4.4-10.8)
[2019-12-20 05:07] LABS: Basophils % (manual) 0 (0.0-2.0); Blast Cells 0; Eosinophils % (manual) 0 (0-7); Metamyelocytes % 0; Myelocytes % 0; Promyelocytes % 0; Reactive Lymphocytes 0
[2019-12-20 05:08] LABS: BUN/Creatinine Ratio 25.9
[2019-12-20 05:12] LABS: Bilirubin, Total 0.4 mg/dL (0.2-1.0); Total Protein 6.1 g/dL (6.4-8.2)
[2019-12-20] MEDS: FUROSEMIDE 40 MG/4 ML VIAL IV SCH (06:00)
--- NOTE | 2019-12-20 06:19 | NUR ---
SEDATION VACATION: NOW 2 HOURS OFF FENTANYL. NSR 98-ST 100. NO ECTOPY. NO MOVEMENT OF EXTREMITIES. CHG BATH AND PARTIAL LINEN CHANGE.
--- NOTE | 2019-12-20 06:53 | NUR ---
Respiratory note: RECEIVED PATIENT ON V12 V200 VENT ORALLY INTUBATED WITH AN 8.0 ETT SECURED VIA ELIZABETH AT THE 22CM MARKING AT THE LIP, AND MECHANICALLY VENTILATED WITH THE CHARTED SETTINGS. SPO2 98%, LUNG SOUNDS DIM T/O, NO SECRETIONS WHEN SUCTIONED. SMALL CUT ON LOWER LEFT LIP. THERE IS AN OGT IN PLACE AND SECURED TO THE ETT. PITTING EDEMA NOTED T/O BILATERAL UPPER AND LOWER EXTREMITIES. PATIENT IS UNRESPONSIVE TO BOTH VERBAL/TACTILE STIMULI AND IS OFF ALL SEDATION. NO NEW AM CXR TO ASSESS. SHE IS RESTING COMFORTABLY AND TOLERATING VENT WELL, NO CHANGES MADE. VENT PLUGGED INTO RED OUTLET AND ALL ALARMS ARE SET AND AUDIBLE. WILL CONTINUE TO ASSESS PATIENT WELL VENTILATOR FUNCTION. [employer].
--- NOTE | 2019-12-20 07:20 | NUR ---
[facility] AT BEDSIDE TO COMPLETE CHEST ULTRASOUND PER MD ORDER.
[2019-12-20 07:35] LABS: Band Neutrophils % (manual) 1; Lymphocytes % (manual) 5 (10.0-50.0); Monocytes % (manual) 6 (0-12)
--- NOTE | 2019-12-20 07:45 | NUR ---
OPENING NOTE RECEIVED REPORT FROM DATA BASE DESIGN ANALYST RN AND ASSUMED CARE OF PT. PT MECHANICALLY VENTILATED AND CURRENTLY NOT ON SEDATION. PT IS UNRESPONSIVE TO PAINFUL STIMULI. SPECIALTY MATTRESS IN USE. VITAL SIGNS STABLE WITH NO S/S OF DISTRESS NOTED. KEATING CATHETER IN PLACE AND DRAINING APPROPRIATELY. WILL CONTINUE TO MONITOR.
[2019-12-20] MEDS: MIDAZOLAM DRIP 50 mg/50mL 50 ML IV SCH (08:34)
--- NOTE | 2019-12-20 08:40 | NUR ---
AT BEDSIDE DR. CLIFFORD AT BEDSIDE TO ASSESS PT AND UPDATE PLAN OF CARE. NOTIFIED MD OF PTS LATEST ABG RESULTS AND RESULTS FROM CHEST ULTRASOUND. MD SAID IT WAS OKAY TO PROCEED WITH ULTRASOUND GUIDED THORACENTESIS FOR PLEURAL FLUID CULTURE.
[2019-12-20] MEDS: EPINEPHrine HCL 250 ML IV SCH (08:55)
--- NOTE | 2019-12-20 09:00 | NUR ---
PT OFF SEDATION SINCE 399 PER OPERATIONAL RISK MANAGER RN. PT STILL UNRESPONSIVE TO PAIN WITH VITAL SIGNS STABLE. WILL CONTINUE TO MONITOR AND TITRATE FENT PER PROTOCOL. Addendum: 12/20/19 at 1451 by SAM SOLIZ RN RN Amended: Links added.
--- NOTE | 2019-12-20 09:35 | NUR ---
CONSENT FOR THORA PTS , ANGLE, AT BEDSIDE TO CONSENT FOR THORACENTESIS. ZULAY COTE UPDATED ON PT CONDITION AND EXPLAINED PROCEDURE. CONSENT SIGNED AT BEDSIDE. ALL QUESTIONS AND CONCERNS ADDRESSED.
[2019-12-20] MEDS: fentaNYL Drip 2500mCg/250mlNS 250 ML IV SCH (10:12)
[2019-12-20] MEDS: PANTOPRAZOLE 40 MG/10 ML VIAL INJ IV SCH ×2 (10:12→21:49)
[2019-12-20] MEDS: levoFLOXacin 500MG 100 ML IV SCH (10:12)
[2019-12-20] MEDS: ERTAPENEM SOD INJ 1 GM in SODIUM CHL 0.9% 50 ML IV SCH (10:17)
--- NOTE | 2019-12-20 10:20 | NUR ---
TUBE FEEDING ASSESSMENT R NARE NG TUBE POSITIVE FOR PLACEMENT VIA AUSCULTATION. FLUSHED WITH 30 ML OF WATER AND GOT 50 ML RESIDUAL. WILL HOLD FEEDINGS AND CONTINUE TO MONITOR UNTIL RESIDUAL IS LESS.
--- NOTE | 2019-12-20 11:25 | NUR ---
COOLING MEASURE INITIATED COOLING BLANKET FOR PT TEMP OF 99.9 DEGREES FAHRENHEIT. WILL CONTINUE TO MONITOR AND ASSESS.
--- NOTE | 2019-12-20 11:40 | NUR ---
DR. PARISI AT BEDSIDE TO DO RIGHT SIDED US GUIDED THORACENTESIS. MD WILL NOT CONTINUE PROCEDURE DUE TO MINIMAL AMOUNT OF FLUID IN THE LUNG. UNABLE TO OBTAIN FLUID SAMPLE FOR CULTURE.
--- NOTE | 2019-12-20 12:50 | NUR ---
AT BEDSIDE DR. CARDENAS AT BEDSIDE TO ASSESS PT AND UPDATE PLAN OF CARE. NO NEW ORDERS RECEIVED AT THIS TIME. MADE MD AWARE PT WAS NOT TOLERATING TUBE FEEDINGS AT THIS TIME AND DID NOT HAVE THE THORACENTESIS DONE THIS MORNING.
[2019-12-20] MEDS: NOREPINEPHRINE 8 MG/250ML KIT 250 ML IV SCH (12:55)
--- NOTE | 2019-12-20 14:09 | NUR ---
Respiratory note: FIO2 DECREASED TO 35% AT THIS TIME. ZULAY VARGAS MADE AWARE OF CHANGE.
--- NOTE | 2019-12-20 15:50 | NUR ---
NG TUBE ASSESSMENT PLACEMENT IS POSITIVE VIA AUSCULTATION. FLUSHED WITH 30 ML AND GOT RESIDUAL OF 50 ML. WILL CONTINUE TO MONITOR RESIDUAL AND RESTART TUBE FEEDING WHEN APPROPRIATE.
--- NOTE | 2019-12-20 16:55 | NUR ---
VANCOMYCIN HELD VANCOMYCIN HELD FOR TROUGH OF 20.8. CALLED PHARMACY TO VERIFY NON-ADMIN. PHARMACY SAID IT WAS OK TO HOLD.
[2019-12-20] MEDS: VASOPRESSIN 50 UNITS in D5W 5% 247.5 ML IV SCH (18:16)
[2019-12-20 18:42] LABS: Hemoglobin 10.6 g/dL (12.2-16.2); Mean Corpuscular Hemoglobin 27.4 pg (28.0-32.0)
[2019-12-20 18:47] LABS: Mean Corpuscular Hgb Conc. 32.2 g/dL (32.0-36.0); Platelet Count (auto) 132 10^3/uL (140-450); Red Blood Cells 3.89 10^6/uL (4.0-5.20); Red Cell Distribution Width 17.6 % (11.8-14.3)
--- NOTE | 2019-12-20 18:50 | NUR ---
NG REASSESSMENT POSITIVE PLACEMENT VIA AUSCULTATION. RESIDUAL STILL HIGH AT 60 ML AND TUBE FEEDINGS HELD. WILL HANDOFF IN REPORT TO PIPELINE DISPATCHER RN.
[2019-12-20 18:55] LABS: INR 1.49 (0.9-1.15); Partial Thromboplastin Time 39.5 sec (23.64-32.05)
[2019-12-20 19:01] LABS: Albumin 1.4 g/dL (3.4-5.0); Calcium 12.2 mg/dL (8.5-10.1); Magnesium 1.6 mg/dL (1.6-2.6); Potassium 4.3 mmol/L (3.5-5.1)
[2019-12-20 19:04] LABS: BUN/Creatinine Ratio 29.4; Bilirubin, Direct 0.3 mg/dL (0-0.2); Bilirubin, Total 0.5 mg/dL (0.2-1.0); Total Protein 6.2 g/dL (6.4-8.2)
[2019-12-20 19:36] LABS: Basophils % (manual) 0 (0.0-2.0); Blast Cells 0; Eosinophils % (manual) 0 (0-7); Metamyelocytes % 0; Myelocytes % 0; Promyelocytes % 0; Reactive Lymphocytes 0
[2019-12-20 19:58] LABS: Band Neutrophils % (manual) 1; Lymphocytes % (manual) 2 (10.0-50.0); Monocytes % (manual) 1 (0-12)
[2019-12-20] MEDS: PROPOFOL 100 ML IV SCH ×2 (20:32→22:44)
[2019-12-20] MEDS ORDERED: FUROSEMIDE 40 MG/4 ML VIAL ONE (22:55)
[2019-12-20] MEDS ORDERED: FUROSEMIDE 40 MG/4 ML VIAL IV ONE (23:00)
--- NOTE | 2019-12-20 23:20 | NUR ---
RT NOTE: RT PAGED TO BEDSIDE FOR OXYGEN DESATURATION. UPON ARRIVAL SPO2 91% ON 45% FIO2. INCREASED TO 50%, SPO2 94%. PT'S AND DAUGHTER @ BEDSIDE AND AWARE OF CHANGES. NO SOB OR DISTRESS NOTED @ THIS TIME.
[2019-12-21] VITALS (107 sets, daily range): BP systolic 87–159; BP diastolic 47–87
--- NOTE | 2019-12-21 | NUR ---
ASSUMED CARE OF PT. REPORT RECEIVED FROM ZULAY CURRY. RECEIVED PT ON MECHANICAL VENTILATOR SEDATED ON FENTANYL AND PROPOFOL. FAMILY AT BEDSIDE. ON LEVOPHED GTT. SMALL AMOUNT OF WHITE THIN SECRETIONS SUCTIONED OUT OF ET TUBE. LUNG SOUNDS COARSE. PT HAS PITTING EDEMA TO UPPER EXTREMITIES AND LOWER. LOW GRADE TEMP AT 99.7. TACHYCARDIC ON BEDSIDE MONITOR HR 115. PT IN FULL VIEW OF RN. ALL ALARMS ON AND AUDIBLE.
[2019-12-21] MEDS: IPRATROPIUM BROM 0.5 MG/2.5ML INH SOL NEB SCH ×4 (00:09→18:19)
--- NOTE | 2019-12-21 02:43 | NUR ---
PT WENT INTO A-FIB RVR WITH HR HIGH 160. EKG DONE AND UNABLE TO CAPTURE RHYTHM PT CONVERTED BACK TO SINUS RHYTHM IN 90'S LOW 100'S. EKG SHOWS SINUS RHYTHM HR 99
[2019-12-21 03:34] LABS: Mean Corpuscular Volume 85.3 fL (80.0-100.0)
[2019-12-21 03:39] LABS: Hematocrit 34.2 % (36.0-46.0); Hemoglobin 10.9 g/dL (12.2-16.2); Mean Corpuscular Hemoglobin 27.3 pg (28.0-32.0); Platelet Count (auto) 137 10^3/uL (140-450); Red Blood Cells 4.01 10^6/uL (4.0-5.20)
[2019-12-21 03:47] LABS: INR 1.69 (0.9-1.15); Partial Thromboplastin Time 36.7 sec (23.64-32.05)
[2019-12-21 03:53] LABS: Albumin 1.4 g/dL (3.4-5.0); Bilirubin, Direct 0.3 mg/dL (0-0.2); Calcium 12.4 mg/dL (8.5-10.1); Magnesium 1.5 mg/dL (1.6-2.6); Potassium 3.9 mmol/L (3.5-5.1)
[2019-12-21 03:56] LABS: BUN/Creatinine Ratio 29.1; Bilirubin, Total 0.5 mg/dL (0.2-1.0); Total Protein 6.2 g/dL (6.4-8.2)
[2019-12-21 04:19] LABS: White Blood Cell 54.5 10^3/uL (4.4-10.8)
[2019-12-21 04:21] LABS: Basophils % (manual) 0 (0.0-2.0); Blast Cells 0; Eosinophils % (manual) 0 (0-7); Metamyelocytes % 0; Myelocytes % 0; Promyelocytes % 0; Reactive Lymphocytes 0
[2019-12-21] MEDS: PHENYLEPHRINE IV 250 ML IV SCH ×3 (04:35→21:15)
[2019-12-21 04:48] LABS: Lymphocytes % (manual) 2 (10.0-50.0); Monocytes % (manual) 3 (0-12)
[2019-12-21 04:49] LABS: Band Neutrophils % (manual) 5
[2019-12-21] MEDS: ALBUTEROL SULF 2.5 MG/0.5ML(0.5%) NEB SOLN NEB SCH ×4 (06:30→18:19)
[2019-12-21] MEDS: EPINEPHrine HCL 250 ML IV SCH (07:47)
[2019-12-21] MEDS: VASOPRESSIN 50 UNITS in D5W 5% 247.5 ML IV SCH (07:47)
[2019-12-21] MEDS: MIDAZOLAM DRIP 50 mg/50mL 50 ML IV SCH (07:47)
--- NOTE | 2019-12-21 08:29 | NUR ---
ENTRY PROCESSOR REGINO BARRETO AT BEDSIDE. NEW ORDERS IN PLACE.
[2019-12-21] MEDS ORDERED: MAGNESIUM SULFATE 1GM/100ML 100 ML IV ONE (08:30)
--- NOTE | 2019-12-21 08:30 | NUR ---
Family updated on pt status Family of PAULA RUFFIN updated on patient's status and condition. All questions and concerns addressed. Son, verbalized understanding.
--- NOTE | 2019-12-21 08:59 | NUR ---
CREDIT COLLECTIONS SPECIALIST DR. VENESSA JURADO. AWARE OF A.M. ABG. NO NEW ORDERS.
--- NOTE | 2019-12-21 09:00 | NUR ---
UNABLE TO OBTAIN ACCURATE CVP. LINE REMOVED.
[2019-12-21] MEDS: PANTOPRAZOLE 40 MG/10 ML VIAL INJ IV SCH ×2 (09:23→22:36)
[2019-12-21] MEDS: levoFLOXacin 500MG 100 ML IV SCH (09:23)
[2019-12-21] MEDS: fentaNYL Drip 2500mCg/250mlNS 250 ML IV SCH (09:39)
[2019-12-21] MEDS: ERTAPENEM SOD INJ 1 GM in SODIUM CHL 0.9% 50 ML IV SCH (09:49)
--- NOTE | 2019-12-21 10:00 | NUR ---
Family updated on pt status Family of PAULA RUFFIN updated on patient's status and condition. All questions and concerns addressed. Daughter verbalized understandin, requested daughter to consider making one person as a contact to be able to communication with other members throughout day. Daughter verbalized understanding.
[2019-12-21] MEDS: VANCOMYCIN 1GM/250ML 250 ML IV SCH (11:12)
--- NOTE | 2019-12-21 12:07 | NUR ---
GASTRIC RESIDUAL PATIENT HAD APPROX 60ML OF GASTRIC RESIDUAL. TF HELD AT THIS TIME. ASPIRATION PRECAUTIONS IN PLACE.
--- NOTE | 2019-12-21 12:22 | NUR ---
Family updated on pt status Family of PAULA RUFFIN updated on patient's status and condition. All questions and concerns addressed. Daughter verbalized understanding. Again expressed to family that it is recommended and requested to have one contact lens manufacturer to update and to notify other memebers. Daughter verbalized understanding.
--- NOTE | 2019-12-21 13:58 | NUR ---
assessment Patient is a 64 year old female who is on a vent. I have called patients daughter Carole and left her a message to return my call for assessment. Waiting motion picture set worker back now. Addendum: 12/21/19 at 1359 by Lakshmi STEVENS Amended: Links added.
--- NOTE | 2019-12-21 14:21 | NUR ---
Family updated on pt status Family of PAULA RUFFIN updated on patient's status and condition. All questions and concerns addressed. , at bedside verbalized understanding.
--- NOTE | 2019-12-21 19:30 | NUR ---
Opening Shift Note Report received from day shift RN. Received pt on mechanical ventilator, on fentanyl gtt. Levophed gtt on. No response to stimuli. Full assessment done see interventions. Fernandez catheter draining to gravity, secured below bladder. Skin integrity assessed for any changes; perirectal area reddened. z-guard applied. Optifoam to sacrum. all pressure points offloaded with pillows and frequent reposition. Bed locked in lowest position. All alarms on and audible. Pt in full view of RN.
--- NOTE | 2019-12-21 21:30 | NUR ---
AT BEDSIDE DR. CLIFFORD EXAMINING PT AT BEDSIDE. UPDATED ON PT STATUS. DR. CLIFFORD TALKING TO PT'S . MADE MD AWARE OF PHARMACY'S RECOMMENDATION TO CHANGE ANTIBIOTICS.
[2019-12-22] VITALS (99 sets, daily range): BP systolic 86–135; BP diastolic 49–81
[2019-12-22] MEDS: IPRATROPIUM BROM 0.5 MG/2.5ML INH SOL NEB SCH ×5 (00:06→23:52)
[2019-12-22] MEDS: ALBUTEROL SULF 2.5 MG/0.5ML(0.5%) NEB SOLN NEB SCH ×5 (00:06→23:52)
--- NOTE | 2019-12-22 01:45 | NUR ---
PTS HR WENT UP TO 135 AND SUSTAINING. SINUS TACHYCARDIA. DESATURATING TO 87%. PT BREATHING OVER VENTILATOR AND NOT GETTING TIDAL VOLUMES. PROPOFOL RESTARTED AND TITRATING UP ON FENTANYL GTT.
[2019-12-22] MEDS: VANCOMYCIN 1GM/250ML 250 ML IV SCH ×2 (02:35→20:00)
--- NOTE | 2019-12-22 05:00 | NUR ---
CARES FULL BED BATH GIVEN AND LINEN CHANGED. PT TOLERATED WELL. EYES OPENED SPONTANEOUSLY BUT DID NOT FOLLOW COMMANDS OR TRACK.
[2019-12-22] MEDS: fentaNYL Drip 2500mCg/250mlNS 250 ML IV SCH ×2 (05:30→21:56)
[2019-12-22] MEDS: PHENYLEPHRINE IV 250 ML IV SCH ×3 (05:35→22:15)
--- NOTE | 2019-12-22 08:00 | NUR ---
AM ASSESSMENT COMPLETED. ORAL CARE PROVIDED, BED SIDE ALARMS REVIEWED, REPOSITIONED FOR COMFORT.
[2019-12-22] MEDS: MIDAZOLAM DRIP 50 mg/50mL 50 ML IV SCH (08:34)
--- NOTE | 2019-12-22 08:34 | NUR ---
DR. MORRIS CALLED TO GET AN UPDATE ON PT'S CONDITION. I UPDATED HIM ON PT'S CONDITION, HE WANTED TO KNOW IF PT HAD LABS DRAWN THIS AM. I SAID , NO LABS WERE ORDERED. STAT LABS ORDERED BY .
--- NOTE | 2019-12-22 08:46 | NUR ---
BLOOD DRAWN THROUGH CENTRAL LINE BLUE PORT & SENT TO LAB FOR REQUESTED LABS.
[2019-12-22] MEDS: EPINEPHrine HCL 250 ML IV SCH (08:55)
[2019-12-22 09:07] LABS: Hematocrit 32.9 % (36.0-46.0); Hemoglobin 10.3 g/dL (12.2-16.2); Mean Corpuscular Hgb Conc. 31.5 g/dL (32.0-36.0); Mean Corpuscular Volume 85.7 fL (80.0-100.0); Platelet Count (auto) 115 10^3/uL (140-450); Red Blood Cells 3.83 10^6/uL (4.0-5.20); Red Cell Distribution Width 17.8 % (11.8-14.3)
[2019-12-22 09:09] LABS: White Blood Cell 48.6 10^3/uL (4.4-10.8)
[2019-12-22 09:10] LABS: Basophils % (manual) 0 (0.0-2.0); Blast Cells 0; Eosinophils % (manual) 0 (0-7); Metamyelocytes % 0; Promyelocytes % 0; Reactive Lymphocytes 0
--- NOTE | 2019-12-22 09:11 | NUR ---
SEDATION VACATION NOT DONE, ABG'S UNSTABLE.
[2019-12-22 09:22] LABS: Calcium 12.9 mg/dL (8.5-10.1); Magnesium 1.7 mg/dL (1.6-2.6); Potassium 3.9 mmol/L (3.5-5.1)
[2019-12-22 09:24] LABS: BUN/Creatinine Ratio 47.2; Phosphorus 1.5 mg/dL (2.5-4.90)
--- NOTE | 2019-12-22 09:30 | NUR ---
DR. DALY ROUNDING ON PT ANTIBIOTIC SELECTION & PHARMACIST RECOMMENDATION DISCUSSED WITH MD. ANTIBIOTICS CHANGED TO PHARMACIST RECOMMENDATION. AM LABS REVIEWED, NEW ORDERS RECEIVED TO ADDRESS ELECTROLYTE IMBALANCES.
[2019-12-22] MEDS ORDERED: SODIUM PHOSPHATES 20 MEQ in SODIUM CHL 0.9% 100 ML IV ONE (09:45)
[2019-12-22] MEDS: PANTOPRAZOLE 40 MG/10 ML VIAL INJ IV SCH ×2 (09:59→22:09)
[2019-12-22] MEDS: MAGNESIUM SULFATE 1GM/100ML 100 ML IV SCH ×3 (10:00→12:56)
[2019-12-22] MEDS: ENOXAPARIN SOD 40 MG/0.4 ML SYRINGE SC SCH (10:00)
[2019-12-22 10:12] LABS: Band Neutrophils % (manual) 2; Lymphocytes % (manual) 2 (10.0-50.0); Monocytes % (manual) 4 (0-12); Myelocytes % 1
[2019-12-22] MEDS: NOREPINEPHRINE 8 MG/250ML KIT 250 ML IV SCH (11:58)
[2019-12-22] MEDS: MEROPENEM 1GM IVPB 100 ML IV SCH ×2 (14:04→21:56)
--- NOTE | 2019-12-22 15:30 | NUR ---
DR. CLIFFORD ROUNDED ON PT. NO NEW ORDERS RECEIVED RT HAD PREVIOUSLY CALLED WITH ABG RESULTS, VENTILATOR HAD BEEN ADJUSTED. ACCORDINGLY. 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 PT'S FAMILY STILL WAITING ON A MIRACLE. PT REMAINS FULL CODE AT THIS TIME. DR DALY SPOKE TO THEM THIS AM REGARDING DNR WHILE MAINTAINING CURRENT TREATMENT, PT'S SPOUSE SAID HE HAD TO DISCUSS IT WITH THE REST OF THE FAMILY AND HE'LL GET BACK TO US.
--- NOTE | 2019-12-22 16:00 | NUR ---
BLOOD DRAWN THROUGH CENTRAL LINE FOR VANCO THROUGH. RECEIVED ORDERS FOR TYLENOL FROM DR. CLIFFORD FOR A TEMP 100.00 RECTALLY. PT ON COOLING BLANKET. TACHYCARDIC HR 120'S. REPOSITIONED FOR COMFORT.
[2019-12-22] MEDS: ACETAMINOPHEN 650 mg PER 20 mL UD GT PRN (16:25)
--- NOTE | 2019-12-22 18:00 | NUR ---
DR. CLIFFORD SPOKE TO PT'S FAMILY REGARDING PT'S LUNG CA CONDITION. HE SHOWED THEM THE X-RAY AND THE CAT-SCAN IMAGES, PT'S FAMILY STILL WANTING TO HANG ON TO THE IDEA OF A MIRACLE. HOPING THAT PT WILL GET BETTER AND BE ABLE TO BREATH ON HER OWN AGAIN.
[2019-12-22] MEDS: Jevity 1.2 Cal/Fiber 1 Liter GT SCH (18:40)
--- NOTE | 2019-12-22 19:20 | NUR ---
REPORT GIVEN TO ONCOMING SHIFT.
--- NOTE | 2019-12-22 20:00 | NUR ---
ADMITTED WITH MD DIAGNOSIS OF STAGE 4 LUNG CA. INTUBATED IN ER. OPENING EYELIDS. LOOKED LIKE SHE WAS TRYING TO SMILE. ORALLY INTUBATED. RIGHT NARE NGT WITH JEVITY AT 10CC/HR. ORAL CARE DONE. SCAB LEFT LOWER LIP. NGT RESIDUAL 40CC OF GREEN/BROWN LIQUID. DISCARDED RESIDUAL. LUNGS COARSE. SUCTIONED ETT FOR A MODERATE AMOUNT OF WHITE SECRETIONS. ABDOMEN SOFT. MOISTURE ASSOCIATED DERMATITIS OF THE CINDY ANAL AREA. KEATING IN PLACE DRAINING A BORDERLINE AMOUNT OF CLEAR YELLOW LIQUID TO DOWN DRAIN BAG. 3 + GENERALIZED EDEMA PERSISTS. ALL PULSES ARE WEAK. EXTREMITIES ARE WARM. RECTAL TEMPERATURE PROBE IS IN. NSR 98 - 100. NO ECTOPY. ON PRESSURE CONTROL VENTILATION WITH A PEEP OF 10 AND FIO2 35%.
--- NOTE | 2019-12-22 20:15 | NUR ---
EDUCATIONAL INFORMATION GIVEN TO THE FAMILY CONCERNING THE CODE BLUE SHEET. THEY INFORMED ME THAT THEY WANT TO GIVE THE PATIENT 2 WEEKS BEFORE THEY MAKE A DECISION ON CODE STATUS, TRACHEOSTOMY AND PEG.
[2019-12-22] MEDS: PROPOFOL 100 ML IV SCH (20:32)
--- NOTE | 2019-12-22 21:00 | NUR ---
DECREASING THE FENTANYL AND LEVOPHED. SBP 130.
[2019-12-22] MEDS: VASOPRESSIN 50 UNITS in D5W 5% 247.5 ML IV SCH (22:00)
--- NOTE | 2019-12-22 22:00 | NUR ---
REPOSITIONED TO RIGHT SIDE. ORAL CARE DONE. PATIENT BLINKED HER EYES. BOGGY EDEMA IN LOWER EYES. NO MOVEMENTS OF EXTREMITIES. PITTING EDEMA PERSISTS. ARMS UP ON PILLOWS. NOTHING SUCTIONED ORALLY. MODERATE AMOUNT OF WHITE SECRETIONS SUCTIONED FROM THE ETT. BORDERLINE URINE OUTPUT.
[2019-12-23] VITALS (103 sets, daily range): BP systolic 79–128; BP diastolic 43–77
--- NOTE | 2019-12-23 | NUR ---
FENTANYL OFF. HR HAS GONE UP TO 107. RR IS 24. NO FEVER. BOGGY EDEMA IN BILATERAL EYES. PUPILS SLUGGISH. NGT RESIDUAL 40CC. JEVITY AT 10CC/HR. RESIDUAL WAS A BROWN/GREEN COLOR. RIJ TLC SITE HAS A CLEAN, DRY, CURRENT DRESSING. KEATING OUTPUT IS MARGINAL. TEMP IS NORMAL.
--- NOTE | 2019-12-23 01:07 | NUR ---
HR 108. RR 24. PATIENT IS BEGINNING TO WORK A LITTLE HARDER AT BREATHING. O2 SAT 97%.
--- NOTE | 2019-12-23 01:31 | NUR ---
WEANED OFF FENTANYL AT MIDNIGHT. RR STAYED 24-25, BUT THE EFFORT HAD PICKED UP. HR WENT FROM 98 TO 110. FENTANYL PUT BACK ON.
--- NOTE | 2019-12-23 01:42 | NUR ---
RESPIRATORY EFFORT HAS CALMED DOWN. HR IS 108 STILL. INCREASED THE FENTANYL TO 75MCG.
[2019-12-23] MEDS: NOREPINEPHRINE 8 MG/250ML KIT 250 ML IV SCH (02:00)
--- NOTE | 2019-12-23 02:00 | NUR ---
BRIEF HR 143 AFIB RVR. LASTED LESS THAN A MINUTE. SINUS TACHYCARDIA GRADUALLY GOING UP. RR 24-25. O2 SAT 97%. OFF LEVOPHED. SBP 99.
--- NOTE | 2019-12-23 03:00 | NUR ---
RR NOW 24. O2 SAT HAS GRADUALLY INCREASED TO 99%. HR DOWN TO 113.
--- NOTE | 2019-12-23 03:35 | NUR ---
AM LABS DRAWN
--- NOTE | 2019-12-23 04:00 | NUR ---
CHG BATH. NEW OPTIFOAM ON COCCYX, CINDY ANAL REDNESS WITH SKIN EROSION. Z GUARD ON SKIN. KEATING DRAINING YELLOW LIQUID WITH SEDIMENT. PITTING EDEMA PERSISTS IN ARMS AND LEGS. NGT RESIDUAL THIS TIME WAS ONLY 15CC OF CREAMY BROWN LIQUID. ALL PULSES ARE WEAK. EXTREMITIES ARE COOL. SCDS ON. HEELS OFF BED.
[2019-12-23 04:09] LABS: Hematocrit 32.1 % (36.0-46.0); Hemoglobin 10.3 g/dL (12.2-16.2); Mean Corpuscular Hemoglobin 27.1 pg (28.0-32.0); Mean Corpuscular Hgb Conc. 32.1 g/dL (32.0-36.0); Mean Corpuscular Volume 84.3 fL (80.0-100.0); Platelet Count (auto) 121 10^3/uL (140-450); Red Blood Cells 3.81 10^6/uL (4.0-5.20); Red Cell Distribution Width 17.7 % (11.8-14.3)
[2019-12-23 04:16] LABS: Albumin 1.3 g/dL (3.4-5.0); BUN/Creatinine Ratio 45.7; Calcium 12.9 mg/dL (8.5-10.1); Magnesium 1.7 mg/dL (1.6-2.6); Potassium 3.6 mmol/L (3.5-5.1)
[2019-12-23 04:25] LABS: Bilirubin, Total 0.5 mg/dL (0.2-1.0); Phosphorus 1.5 mg/dL (2.5-4.90); Total Protein 5.6 g/dL (6.4-8.2)
[2019-12-23 04:47] LABS: White Blood Cell 45.1 10^3/uL (4.4-10.8)
[2019-12-23 04:48] LABS: Basophils % (manual) 0 (0.0-2.0); Blast Cells 0; Metamyelocytes % 0; Myelocytes % 0; Promyelocytes % 0; Reactive Lymphocytes 0
[2019-12-23 05:40] LABS: Band Neutrophils % (manual) 7; Eosinophils % (manual) 1 (0-7); Lymphocytes % (manual) 3 (10.0-50.0); Monocytes % (manual) 2 (0-12)
[2019-12-23] MEDS: ALBUTEROL SULF 2.5 MG/0.5ML(0.5%) NEB SOLN NEB SCH ×3 (05:50→18:44)
[2019-12-23] MEDS: IPRATROPIUM BROM 0.5 MG/2.5ML INH SOL NEB SCH ×3 (05:50→18:44)
--- NOTE | 2019-12-23 06:00 | NUR ---
IT HAS TAKEN ALL NIGHT FOR THE HEART RATE TO RECOVER FROM THE SHORT WEANING PROCESS. LEVOPHED IS OFF. FENTANYL IS BACK AT 100MCG. RR 24-25
[2019-12-23] MEDS: MEROPENEM 1GM IVPB 100 ML IV SCH ×3 (06:21→22:00)
[2019-12-23] MEDS: PHENYLEPHRINE IV 250 ML IV SCH ×4 (06:35→22:30)
--- NOTE | 2019-12-23 07:30 | NUR ---
AM ASSESSMENT COMPLETED. ORAL CARE PROVIDE, REPOSITIONED FOR COMFORT. RE- STARTED LEVOPHED D/T HYPOTENSION, SEE IV FLOWSHEET.
[2019-12-23] MEDS: MIDAZOLAM DRIP 50 mg/50mL 50 ML IV SCH (08:34)
[2019-12-23] MEDS: EPINEPHrine HCL 250 ML IV SCH (08:55)
--- NOTE | 2019-12-23 09:29 | NUR ---
DR. DALY ROUNDING ON PT. UPDATED ON PT'S CONDITION, FAMILY WISHING TO KEEP PT FULL CODE DESPITE POOR PROGNOSIS. YESTERDAY DR. DALY AND DR. CLIFFORD SPEND ABOUT HALF AN HOUR EACH EXPLAINING PT'S CONDITION TO PT'S FAMILY AND DIFFERENT ALTERNATIVES, PT'S FAMILY WANT TO WAIT FOR THE ADDITIONAL 7 DAYS BEFORE THEY HAVE TO MAKE A DECISION. AT THAT TIME PT WOULD HAVE TO HAVE A TRACHEOSTOMY OR BE TERMINALLY EXTUBATED, FOR NOW THE FAMILY WANTS EVERYTHING DONE TO KEEP PT ALIVE. NEW ORDERS RECEIVED FOR ELECTROLYTE REPLACEMENTS. WILL CONTINUE MONITORING.
[2019-12-23] MEDS ORDERED: POTASSIUM PHOSPHATE 44 MEQ in D5W 5% 250 ML IV ONE (09:30)
[2019-12-23] MEDS: MAGNESIUM SULFATE 1GM/100ML 100 ML IV SCH ×3 (09:47→12:13)
[2019-12-23] MEDS: ENOXAPARIN SOD 40 MG/0.4 ML SYRINGE SC SCH (09:47)
[2019-12-23] MEDS: PANTOPRAZOLE 40 MG/10 ML VIAL INJ IV SCH ×2 (09:47→22:00)
--- NOTE | 2019-12-23 10:31 | NUR ---
RT NOTE: PT WAS PLACED ON CPAP AT THIS TIME PER DR CLIFFORD, PT FAILED CPAP DUE TO INCREASED HR 120'S, RR 28, VT 250, SPO2 88%. PT WAS PLACED BACK ON PREVIOUS PCV SETTINGS. DR CLIFFORD AWARE WILL CONTINUE TO MONITOR PT.
--- NOTE | 2019-12-23 10:39 | NUR ---
DR. CLIFFORD ROUNDING ON PT HE HAD RT Elise. Nemo PLACE PT ON CPAP ON FENTANYL AT 100 MCG TO SEE WHAT PT WOULD DO. PT WAS HAVING RETRACTION, LABOR BREATHING, ASYMMETRICAL CHEST MOVEMENT, TACHYCARDIA HR INCREASED TO THE 120'S TO 130'S, TACHYPNEA RR IN THE MID 30'S AND DESATURATION. CPAP TRIAL ONLY LASTED ABOUT 4 MINUTES IF THAT.
--- NOTE | 2019-12-23 12:00 | NUR ---
NO RESIDUAL INCREASED JEVITY TO 20 ML/HR
[2019-12-23] MEDS: DIGOXIN (250MCG/ML) 2 ML AMPULE IV SCH ×2 (14:21→19:30)
[2019-12-23] MEDS: VANCOMYCIN 1GM/250ML 250 ML IV SCH (14:22)
--- NOTE | 2019-12-23 15:17 | NUR ---
assessment Patient is a 64 year old female in ICU on a vent. Per patients daughter Brianna prior to admission patient was living home with her and needed assistance. Patient has a w/c, fww, bedside commode for home use. Patients PCP is Dr Jauregui. Jarad Lam patient has no advanced directive or POA. I informed Carole patients post discharge needs to be determined after extubation and prior to discharge. Carole verbalized understanding. Addendum: 12/23/19 at 1523 by Lakshmi STEVENS Amended: Links added.
[2019-12-23] MEDS: ACETAMINOPHEN 650 mg PER 20 mL UD GT PRN (16:36)
[2019-12-23] MEDS: Jevity 1.2 Cal/Fiber 1 Liter GT SCH (20:00)
--- NOTE | 2019-12-23 20:00 | NUR ---
ADMITTED WITH DYSPNEA AND RESPIRATORY FAILURE. ORALLY INTUBATED. ETT TO VENTILATOR. PUPILS 5 AND SLUGGISH. WEAK BLINK. SMALL AREA OF BOGGY EDEMA IN LOWER PORTION OF OPEN EYES. RIGHT EYE DEVIATES SLIGHTLY TO THE RIGHT. DOES NOT FOCUS OR LOOK YOUR WAY. FACIAL MOVEMENTS . DOES NOT MOVE HEAD OR EXTREMITIES. LUNGS COARSE. LARGE AMOUNT OF WHITE SECRETIONS SUCTIONED FROM THE ETT. ORAL CARE DONE. SCAB ON RIGHT EDGE OF MOUTH. MOISTURIZER TO LIPS. RIJ TLC WITH FENTANYL, NEOSYNEPHRINE AND PIGGYBACKS. RIJ DRESSING IS CLEAN AND DRY. NO REDNESS AT SITE OF INSERTION. 3+ GENERALIZED EDEMA IN ARMS AND LEGS. ARMS ELEVATED ON PILLOWS. ALL PULSES WEAK. EXTREMITIES COOL. TEMP 99.6 R. REPOSITIONED TO HER BACK. KEATING IN PLACE.KEATING DRAINING YELLOW LIQUID WITH SEDIMENT. ON A SPECIALTY BED. FAMILY HERE. ANSWERED QUESTIONS AND CONCERNS.
--- NOTE | 2019-12-23 20:15 | NUR ---
JEVITY TUBE FEEDING AT 20CC/HR. RESIDUAL IS 80CC. DISCARDED 60CC. HOB ELEVATED. ARMS ELEVATED ON PILLOWS.HEELS OFF BED.
[2019-12-23] MEDS: PROPOFOL 100 ML IV SCH (20:32)
[2019-12-23] MEDS: VASOPRESSIN 50 UNITS in D5W 5% 247.5 ML IV SCH (22:00)
--- NOTE | 2019-12-23 22:00 | NUR ---
REPOSITIONED. ORAL CARE DONE. SUCTIONED ETT X 3 FOR A LARGE AMOUNT OF WHITE SECRETIONS. LUNGS ARE NOT COARSE RIGHT NOW. SINUS TACHYCARDIA. ALTHOUGH HER TEMPERATURE IS NORMAL. HER HEAD IS VERY HOT. ICE BAG PLACED IN BACK OF NECK. FAMILY VISITING. BORDERLINE URINE OUTPUT.
--- NOTE | 2019-12-23 23:15 | NUR ---
SUCTIONING ETT Q 1 HOUR TONIGHT. LARGE AMOUNT OF WHITE SECRETIONS. LUNGS SOUND CLEARER TONIGHT.
[2019-12-24] VITALS (103 sets, daily range): BP systolic 74–132; BP diastolic 37–73
--- NOTE | 2019-12-24 | NUR ---
FAMILY HAS JUST GONE HOME. SINUS TACHYCARDIA. ORAL CARE DONE. MOISTURIZER TO LIPS. LARGE AMOUNT OF WHITE SECRETIONS SUCTIONED FROM THE ETT. LUNGS SOUND CLEARER TONIGHT. TUBE FEED RESIDUAL 30CC. REINSTILLED RESIDUAL. PUPILS LARGER TONIGHT, STILL EQUAL. RIGHT EYE DEVIATES TO THE RIGHT. OCCASIONALLY HAS A GAG/COUGH. SCLERAL EDEMA BILATERALLY. ARMS AND LEGS MORE EDEMATOUS TODAY. ARMS ELEVATED ON PILLOWS. HEELS OFF BED. RECTAL TEMP PROBE CHECKED AGAINST THE ORAL TEMP THERMOMETER. THEY ARE COMPARABLE.
[2019-12-24] MEDS: fentaNYL Drip 2500mCg/250mlNS 250 ML IV SCH ×2 (00:15→22:36)
[2019-12-24] MEDS: IPRATROPIUM BROM 0.5 MG/2.5ML INH SOL NEB SCH ×4 (00:18→18:34)
[2019-12-24] MEDS: ALBUTEROL SULF 2.5 MG/0.5ML(0.5%) NEB SOLN NEB SCH ×4 (00:18→18:34)
[2019-12-24] MEDS: PHENYLEPHRINE IV 250 ML IV SCH ×4 (01:00→10:23)
[2019-12-24] MEDS: DIGOXIN (250MCG/ML) 2 ML AMPULE IV SCH (01:07)
--- NOTE | 2019-12-24 01:30 | NUR ---
HR 116. LAST DOSE OF DIGOXIN GIVEN . THE LOWEST THE HEART RATE INITIALLY WENT WAS 108. AT 0230 THE HEART RATE WAS GRADUALLY INCREASING AFTER I TURNED HER TO HER LEFT SIDE. I REPOSITIONED HER TO HER BACK AND THE HEART RATE JUST KEPT GOING UP UNTIL AT 0248 THE HEART RATE WAS 124, O2 SAT WAS DROPPING, RR WAS GOING UP. IN WORKING WITH THE FENTANYL, IT SEEMED THE HEART RATE WENT UP HIGHER, FASTER WHEN I INCREASED IT. I BROUGHT IT BACK TO 100MCG/MIN AND ADDED VERSED. THAT DID NOT WORK. AT 030 THE HEART RATE WAS 137, AND THEN AT 0309 A FIB RVR RATE 152. CALL PLACED TO DR DALY AT 0235. WHEN HE CALLED BACK, I RECEIVED AN ORDER FOR AMIODARONE BOLUS AND DRIP . THE HEART RHYTHM WAS SINUS TACHYCARDIA. AFTER THE BOLUS THE HEART RATE CAME DOWN TO 122. THE AMIO DRIP WAS STARTED AT 0350. BY 0 THE HEART RATE WAS 92 , SINUS RHYTHM. THE O2 SATURATION CAME BACK TO BASELINE 94-96%. THE RR CAME FROM 32 DOWN TO 24. NEOSYNEPHRINE DRIP HAD TO BE RESTARTED TO MAINTAIN THE SBP.
--- NOTE | 2019-12-24 02:00 | NUR ---
DIGOXIN TOOK THE HR OF 116 AND BROUGHT IT DOWN TO 108. THEN I SUCTIONED HER ETT AND REPOSITIONED HER. THE HEART RATE WENT UP TO 120. TITRATING THE NEOSYNEPHRINE DOWN. LUNGS ARE SOUNDING CLEARER EACH HOUR. PATIENT OPENED HER EYES FOR ABOUT A MINUTE. THEN CLOSED THEM.
[2019-12-24] MEDS: ACETAMINOPHEN 650 mg PER 20 mL UD GT PRN (02:25)
--- NOTE | 2019-12-24 02:42 | NUR ---
TACHYCARDIA 124, RR 29 ON LEFT SIDE. REPOSITIONED TO HER BACK. SBP 120S. DECREASING THE NEOSYNEPHRINE.
[2019-12-24] MEDS: MIDAZOLAM DRIP 50 mg/50mL 50 ML IV SCH (03:01)
[2019-12-24] MEDS ORDERED: AMIODARONE HCL (50 MG/ ML) 3 ML VIAL IV ONE (03:27)
[2019-12-24] MEDS ORDERED: AMIODARONE HCL 150 MG in D5W 5% 100 ML IV ONE (03:30)
[2019-12-24] MEDS ORDERED: AMIODARONE HCL 900 MG IV ONE (03:36)
[2019-12-24] MEDS: AMIODARONE HCL 900 MG in DEXTROSE 500 ML IV SCH (03:50)
--- NOTE | 2019-12-24 04:10 | NUR ---
NSR WITHOUT ECTOPY. LABS WERE DRAWN DURING THE HIGH HEART RATE. FENTANYL AT 100 MCG/MIN. VERSED BEING WEANED DOWN. AMIODARONE DRIP AT .5. NEOSYNEPHRINE DRIP AT 120MCG. NO VENTILATOR CHANGES. LESS SECRETIONS BEING SUCTIONED FROM THE ETT. URINE OUTPUT HAS PICKED UP.
[2019-12-24 04:28] LABS: Basophils # (auto) 0.1 10 ^3/uL (0-0.2); Basophils % (auto) 0.2 % (0.0-2.0); Lymphocytes % (auto) 2.2 % (10.0-50.0); Red Blood Cells 3.62 10^6/uL (4.0-5.20)
[2019-12-24 04:32] LABS: Eosinophils # (auto) 0.4 10 ^3/uL (0-0.8); Hematocrit 30.7 % (36.0-46.0); Hemoglobin 9.9 g/dL (12.2-16.2); Mean Corpuscular Hemoglobin 27.5 pg (28.0-32.0); Mean Corpuscular Hgb Conc. 32.3 g/dL (32.0-36.0); Mean Corpuscular Volume 84.9 fL (80.0-100.0); Monocytes # (auto) 1.8 10 ^3/uL (0-1.3); Monocytes % (auto) 4.2 % (0.0-12.0); Neutrophils # (auto) 40.7 10 ^3/uL (1.6-8.6); Neutrophils % (auto) 92.4 % (37.0-80.0); Nucleated Red Blood Cells % 0.2 %; Platelet Count (auto) 126 10^3/uL (140-450); Red Cell Distribution Width 18.3 % (11.8-14.3)
[2019-12-24 04:35] LABS: White Blood Cell 44.1 10^3/uL (4.4-10.8)
[2019-12-24 04:48] LABS: Potassium 4.1 mmol/L (3.5-5.1)
[2019-12-24 04:53] LABS: BUN/Creatinine Ratio 32.6; Calcium 11.5 mg/dL (8.5-10.1)
--- NOTE | 2019-12-24 05:00 | NUR ---
CXR COMPLETED. NEW LINEN CHANGE. ORAL CARE. SUCTIONED ETT FOR A SMALL AMOUNT OF SECRETIONS. WEANING DOWN VERSED
[2019-12-24] MEDS: MEROPENEM 1GM IVPB 100 ML IV SCH ×3 (06:09→22:13)
--- NOTE | 2019-12-24 07:25 | NUR ---
INITIAL ASSESSMENT Report received from Trisha BISWAS, care assumed. Physical assessment complete. Patient opens eyes to painful stimuli but does not follow commands at this time. Afebrile. Pitting edema noted on upper and lower extremities. SCD's in place and all extremities off loaded on pillows. Patient on specialty air mattress. Vital signs stable, no signs of distress noted. Patient tolerating ventilator at this time. Bed locked in lowest position, alarms in place. Will continue to monitor.
[2019-12-24] MEDS: VANCOMYCIN 1GM/250ML 250 ML IV SCH ×2 (07:47→16:49)
[2019-12-24] MEDS: EPINEPHrine HCL 250 ML IV SCH (07:48)
--- NOTE | 2019-12-24 08:00 | NUR ---
RESIDUAL Tube feedings held due to high residual greater than 100 cc. Will monitor and reassess tolerance of feedings.
--- NOTE | 2019-12-24 09:00 | NUR ---
VISITOR Patient at bedside.
--- NOTE | 2019-12-24 09:32 | NUR ---
MD VISIT: PCP at bedside assessing patient. New orders received. MD aware that patient is now sinus rhythm and no longer afib. MD would like RN to contact cardiology regarding afib and coagulation.
--- NOTE | 2019-12-24 09:44 | NUR ---
CARDIOLOGY PAGED LONG TERM CARE SOCIAL WORKER David paged regarding update on atrial fib and medication. LONG TERM CARE SOCIAL WORKER returned paged. New orders received for Eliquis and PO amiodarone.
[2019-12-24] MEDS: NOREPINEPHRINE 8 MG/250ML KIT 250 ML IV SCH (10:00)
[2019-12-24] MEDS ORDERED: AMIODARONE HCL 200 MG TAB GT SCH (10:00)
[2019-12-24] MEDS: PANTOPRAZOLE 40 MG/10 ML VIAL INJ IV SCH ×2 (10:23→22:13)
[2019-12-24] MEDS: APIXABAN 2.5 MG TAB GT SCH ×2 (10:24→22:13)
[2019-12-24] MEDS: AMIODARONE HCL 200 MG TAB PO SCH ×2 (10:24→22:14)
[2019-12-24] MEDS: ENOXAPARIN SOD 40 MG/0.4 ML SYRINGE SC SCH (10:24)
[2019-12-24] MEDS: MICAFUNGIN SODIUM 100 MG in SODIUM CHL 0.9% 100 ML IV SCH (11:02)
--- NOTE | 2019-12-24 11:20 | NUR ---
MD VISIT: PULMONOLOGY at bedside assessing patient. MD would like to attempt cpap trial today. Orders placed and RT notified.
--- NOTE | 2019-12-24 11:20 | NUR ---
WOUND CARE NOTE: IN TO SEE PATIENT AT THIS TIME FOR SKIN/WOUND REEVALUATION. PATIENT CONTINUES TO REST ON SPECIALTY AIR BED. SHE IS INTUBATED, SEDATED. PATIENT CONTINUES TO DISPLAY MASD FROM SACRUM TO PERINEUM, NOW WITH SKIN EROSION THAT IS PARTIAL THICKNESS. PATIENT HAS 3 X 3 CM PARTIAL THICKNESS EROSION TO LEFT/MEDIAL SACRUM, AND 4 X 1 CM PARTIAL THICKNESS AREA TO LEFT BUTTOCK. WOUND BED IS PALE PINK/RED, WITH BRIGHT RED/DARK RED PERIWOUND. PATIENT HAS INDWELLING KEATING CATHETER. PATIENT CONTINUES TO RECEIVE ZGUARD AND OPTIFOAM GENTLE SACRAL DRESSING TO AREA. WOUND PHOTO TAKEN FOR REFERENCE. RECOMMEND: SIDE TO SIDE POSITIONING, CONTINUATION WITH ALL OTHER WOUND CARE ORDERS PREVIOUSLY PRESCRIBED BY MD. WOUND CARE TEAM WILL CONTINUE TO MONITOR. Addendum: 12/24/19 at 1529 by Jovanna Guerrero RN Amended: Links added.
--- NOTE | 2019-12-24 11:25 | NUR ---
SPONTANEOUS BREATHING TRIAL INITIATED WITH DR CLIFFORD AT BEDSIDE. PT DID NOT TOLERATED WELL, HR 86, RR 26, LOW TIDAL VOLUMES 210-230 ML, DESAT TO 87%, WITH ACCESSORY MUSCLE USE. PLACED PT BACK ON PREVIOUS SETTINGS PCV MODE AT 1130. ZULAY NARANJO AT BEDSIDE AND AWARE.
--- NOTE | 2019-12-24 11:48 | NUR ---
WOUND CARE Kailyn BISWAS from wound care at bedside for skin reassessment. New photo's taken, kellie care given. Patient repositioned on side. Patient tolerated activity well. Vitals stable, no distress noted.
--- NOTE | 2019-12-24 13:38 | NUR ---
Nutrition Followup Notes Pt wt is 68.4 kg today Pt sedated, intubated with no relatives at bedside when rounded this morning. Pt with no noted distress per RN doc. Noted EN support initiated at 20 ml/hr rate, not tolerated well, with 110ml residuals, hence tube feedings held due to high residual greater than 100 cc.; will reassess feeding rate per RN doc. Noted EN support reinitiated this afternoon at 10ml/hr. ADDITIONAL RECOMMENDATION: If EN support continues to be poorly tolerated over the neXt 48 hrs, consider aLternate nutrition support. Est energy needs: 9396-7209 kcals (25-30 kcal/kgBW) Est protein needs: 55-68 gms/day (0.8-1.0 gm/kgBW) Will continue to monitor and reassess prn. LABS: Ca 11.5 h, Alb 1.3 L GI: No BM noted, Last BM unknown per RN doc BS: 11 high risk, skin tear at sacrum; Please refer to wound assessment report for full details. PES: Problem 1) Inadequate oral intake r/t pt NPO status, to receive EN support aeb pt sedated, intubated 2) Altered nutrition related lab values r/t current medical condition aeb hyponat, hypercalc, hypomagn, elev LFTs, severe hypoalb Comments 1) Gradually advance pt diet of EN support Jevity 1.2 @65 ml/hr goal rate as tolerated and per MD approval 2) Gradually advance pt to oral diet when medically feasible, as tolerated and per MD approval 3) If albumin continues trending down, consider Prostat 1 pkt BID 4) Continue current plan of care
--- NOTE | 2019-12-24 14:29 | NUR ---
TEMPERATURE Patient has low grade temperature 99.7 rectally. Ice packs applied to trunk, fan in place, and cool compress applied to forehead. Will continue to monitor.
--- NOTE | 2019-12-24 14:39 | NUR ---
MD UPDATE Spoke with regarding high infusion rate of Neosynephrine. MD orders obtained for double concentration.
--- NOTE | 2019-12-24 16:00 | NUR ---
CARES Complete linen and gown change performed. Lita care complete with new dressing change to medical sacrum. Lita area pink and inflamed, Z-guard applied. Patient then repositioned on side with head of bed greater than 30 degrees. NGT residual only 20 cc. Restart tube feedings at 15 cc/hr. Oral care complete. Vital signs stable at this time. Will continue to monitor.
[2019-12-24] MEDS: PHENYLEPHRINE INJ 40 MG in SODIUM CHL 0.9% 250 ML IV SCH (16:49)
--- NOTE | 2019-12-24 19:10 | NUR ---
REPORT Report given to Mary BISWAS, care endorsed.
[2019-12-24] MEDS: PROPOFOL 100 ML IV SCH (19:42)
--- NOTE | 2019-12-24 19:45 | NUR ---
Opening Shift Note: Patient is intubated. ET size 8.0/23 @ the lip: PCV rate 24; pressure 26; FiO2 30%; PEEP 10. Pupils are 5 mm in size bilaterally/sluggish but reactive to light; hypoactive cough/gag; flaccid extremities; spontaneous eye opening. Currently NSR to ST 90s-100s; BP SBP 100s. ET secretions are moderate in amount and are thick/creamy/pink tinged. Right nare NGT running Jevity @ 15 ml/hr related to previous high residuals; current residual is 60 ml, feedings held at this time. Fernandez inserted on 12/16/19 for strict I/O. Skin: right forearm scab BILLIE; sacral skin breakdown: barrier cream and optifoam changed; bilateral corners of mouth present with scabbing [employer]. IV right tripe lumen IJ inserted on 12/16/19 running Fentanyl @ 150 mcg and Vamsi (Double) @ 70. Family updated on current plan of care and all questions answered. Will continue to round, reposition, and perform oral care per protocol/prn.
[2019-12-24] MEDS: VASOPRESSIN 50 UNITS in D5W 5% 247.5 ML IV SCH (22:00)
--- NOTE | 2019-12-24 23:00 | NUR ---
Residual update: Current residual after break from feedings is 5 ml. Jevity restarted at 15 ml/hr. Goal is 30 ml/hr.
[2019-12-25] VITALS (107 sets, daily range): BP systolic 71–136; BP diastolic 40–81
[2019-12-25] MEDS: ALBUTEROL SULF 2.5 MG/0.5ML(0.5%) NEB SOLN NEB SCH ×5 (00:18→23:56)
[2019-12-25] MEDS: IPRATROPIUM BROM 0.5 MG/2.5ML INH SOL NEB SCH ×5 (00:19→23:56)
[2019-12-25] MEDS ORDERED: PHENYLEPHRINE HCL 10 MG/ML VL ONE ×3 (01:14→13:17)
[2019-12-25] MEDS: PHENYLEPHRINE INJ 40 MG in SODIUM CHL 0.9% 250 ML IV SCH ×4 (01:30→22:37)
--- NOTE | 2019-12-25 03:28 | NUR ---
Respiratory note: INCREASED FIO2 TO 45% AT THIS TIME
[2019-12-25] MEDS: PROPOFOL 100 ML IV SCH (03:30)
[2019-12-25 03:50] LABS: Basophils # (auto) 0.1 10 ^3/uL (0-0.2); Eosinophils # (auto) 0.7 10 ^3/uL (0-0.8); Hemoglobin 10.2 g/dL (12.2-16.2); Lymphocytes % (auto) 1.7 % (10.0-50.0); Platelet Count (auto) 151 10^3/uL (140-450)
[2019-12-25 03:54] LABS: Basophils % (auto) 0.2 % (0.0-2.0); Eosinophils % (auto) 1.1 % (0.0-7.0); Hematocrit 32.6 % (36.0-46.0); Mean Corpuscular Hemoglobin 26.8 pg (28.0-32.0); Mean Corpuscular Hgb Conc. 31.2 g/dL (32.0-36.0); Mean Corpuscular Volume 86.1 fL (80.0-100.0); Monocytes # (auto) 2.8 10 ^3/uL (0-1.3); Monocytes % (auto) 4.9 % (0.0-12.0); Neutrophils # (auto) 53.9 10 ^3/uL (1.6-8.6); Neutrophils % (auto) 92.1 % (37.0-80.0); Red Blood Cells 3.78 10^6/uL (4.0-5.20); Red Cell Distribution Width 19.3 % (11.8-14.3)
[2019-12-25 03:58] LABS: White Blood Cell 58.5 10^3/uL (4.4-10.8)
--- NOTE | 2019-12-25 04:00 | NUR ---
Tachycardia and oxygen desaturation: Patient's HR sustaining in 120s and desating into the mid to high 80s on 30% FiO2. RR is also high and labored 24-36. Page sent to respiratory therapist. FiO2 increased to 45%. Temp max is 100.2 rectal: 650 mg tylenol given via NGT. Residual is 5 ml. Cooling measure initiated. Propofol restarted per protocol to help control RR and labored breathing. Fentanyl increased to 200 mcg during episode.
[2019-12-25 04:08] LABS: BUN/Creatinine Ratio 34.2; Magnesium 1.7 mg/dL (1.6-2.6); Phosphorus 2.2 mg/dL (2.5-4.90); Potassium 4.5 mmol/L (3.5-5.1)
--- NOTE | 2019-12-25 04:15 | NUR ---
RR still intermittently in 30s. Propofol increased to 20.
[2019-12-25] MEDS: ACETAMINOPHEN 650 mg PER 20 mL UD GT PRN ×2 (04:16→22:00)
--- NOTE | 2019-12-25 04:35 | NUR ---
Patient bathe/linen change Patient given complete CHG bath. Skin integrity assessed for any changes. Optifoam on sacrum changed. Linens and gown changed. Patient repositioned for comfort.
[2019-12-25] MEDS: MEROPENEM 1GM IVPB 100 ML IV SCH ×3 (06:00→22:35)
--- NOTE | 2019-12-25 07:03 | NUR ---
Respiratory note: RECEIVED PATIENT ON V12 V200 VENT ORALLY INTUBATED WITH AN 8.0 ETT SECURED VIA ELIZABETH AT THE 23CM MARKING AT THE LIP, AND MECHANICALLY VENTILATED WITH THE CHARTED SETTINGS. SPO2 99%, LUNG SOUNDS DIM T/O, NO SECRETIONS WHEN SUCTIONED. SMALL CUT ON LOWER LEFT LIP. THERE IS A NGT IN THE RIGHT NARE AND SECURED TO THE ETT. PITTING EDEMA NOTED T/O BILATERAL UPPER AND LOWER EXTREMITIES. PATIENT IS UNRESPONSIVE TO BOTH VERBAL/TACTILE STIMULI AND IS SEDATED ON FENTANYL AND PROPOFOL DRIPS. NO NEW AM CXR TO ASSESS. SHE IS RESTING COMFORTABLY AND TOLERATING VENT WELL, NO CHANGES MADE. VENT PLUGGED INTO RED OUTLET AND ALL ALARMS ARE SET AND AUDIBLE. WILL CONTINUE TO ASSESS PATIENT WELL VENTILATOR FUNCTION. Noomeo RUN INLINE VIA [employer].
--- NOTE | 2019-12-25 07:35 | NUR ---
INITIAL ASSESSMENT Report received from Mary BISWAS, care assumed. Physical assessment complete. Patient opens eyes to painful stimuli but does not follow commands at this time. Afebrile. Lungs coarse anteriorly, tolerating ventilator at this time. Patient on specialty air mattress. See skin/wound assessment. Vital signs stable, no signs of distress noted. Bed locked in lowest position, alarms in place. Will continue to monitor.
--- NOTE | 2019-12-25 08:00 | NUR ---
TUBE FEEDINGS Patient had gastric residual greater than 100. Tube feedings held at this time. Will reassess.
[2019-12-25] MEDS: MIDAZOLAM DRIP 50 mg/50mL 50 ML IV SCH (08:34)
[2019-12-25] MEDS: EPINEPHrine HCL 250 ML IV SCH (08:55)
[2019-12-25] MEDS: AMIODARONE HCL 900 MG in DEXTROSE 500 ML IV SCH (09:15)
[2019-12-25] MEDS: VANCOMYCIN 1GM/250ML 250 ML IV SCH ×2 (09:15→22:36)
[2019-12-25] MEDS: NOREPINEPHRINE 8 MG/250ML KIT 250 ML IV SCH (10:00)
--- NOTE | 2019-12-25 10:00 | NUR ---
VISITOR Patient and son at bedside. Updated on plan of care.
[2019-12-25] MEDS: APIXABAN 2.5 MG TAB GT SCH (10:42)
[2019-12-25] MEDS: AMIODARONE HCL 200 MG TAB PO SCH ×2 (10:42→22:36)
[2019-12-25] MEDS: PANTOPRAZOLE 40 MG/10 ML VIAL INJ IV SCH ×2 (10:43→22:35)
[2019-12-25] MEDS: MICAFUNGIN SODIUM 100 MG in SODIUM CHL 0.9% 100 ML IV SCH (10:49)
[2019-12-25] MEDS: PHENYLEPHRINE IV 250 ML IV SCH (11:00)
--- NOTE | 2019-12-25 11:00 | NUR ---
TUBE FEEDINGS Gastric residual decreased to 20 cc. Tube feedings restarted at 15 cc/hr. Will continue to monitor.
[2019-12-25] MEDS: fentaNYL Drip 2500mCg/250mlNS 250 ML IV SCH (11:34)
--- NOTE | 2019-12-25 12:10 | NUR ---
NEURO ASSESSMENT Patient opening eyes spontaneously. Patient unable to follow commands at this time. Respiratory rate ranging from 25-31 bpm, at times stacking or irregular. Oxygen saturation maintaining. Will continue to monitor.
--- NOTE | 2019-12-25 13:02 | NUR ---
MD VISIT: PULMONOLOGY at beside assessing patient. states from his standpoint that patient is in need of a tracheostomy and peg tube placement or if family would rather do compassionate care due to high levels of vasopressor therapy and increased oxygen requirement.
--- NOTE | 2019-12-25 17:01 | NUR ---
MD UPDATE Spoke to regarding high tube feeding residuals. MD orders received for Reglan administration.
--- NOTE | 2019-12-25 19:06 | NUR ---
REPORT Report given to Mary BISWAS, care endorsed.
--- NOTE | 2019-12-25 19:40 | NUR ---
Opening Shift Note: Patient is intubated. ET size 8.0/23 @ the lip: PCV rate 24; pressure 26; FiO2 45%; PEEP 10. Pupils are 6 mm in size bilaterally/sluggish but reactive to light; hypoactive cough/gag; flaccid extremities; spontaneous eye opening. Currently NSR to ST 90s-100s; BP SBP 110s-120s. ET secretions are moderate in amount and are thin/pink tinged. Right nare NGT running Jevity @ 15 ml/hr related to previous high residuals; current residual is greater than 60 ml, feedings held at this time. Fernandez inserted on 12/16/19 for strict I/O. Skin: right forearm scab [employer] SERV[employer] WORK[employer]; sacral skin breakdown: barrier cream and optifoam changed; bilateral corners of mouth present with scabbing BILLIE. IV right tripe lumen IJ inserted on 12/16/19 running Fentanyl @ 140 mcg and Vamsi (Double) @ 150. Family updated on current plan of care and all questions answered. Will continue to round, reposition, and perform oral care per protocol/prn.
--- NOTE | 2019-12-25 21:00 | NUR ---
Sedation Vacation: Patient currently just on Fentanyl. Propofol shut off during day shift per report. Will try to wean of fentanyl if hemodynamically stable.
[2019-12-25] MEDS: VASOPRESSIN 50 UNITS in D5W 5% 247.5 ML IV SCH (22:00)
[2019-12-25] MEDS: HYDROCORTISONE SOD SUCC 100 MG/2ML INJ VIAL IV SCH (22:36)
[2019-12-25] MEDS: METOCLOPRAMIDE HCL 5MG/ml INJ 2ml VIAL IV SCH (22:36)
[2019-12-26] VITALS (104 sets, daily range): BP systolic 79–152; BP diastolic 39–85
--- NOTE | 2019-12-26 03:00 | NUR ---
Fentanyl wean update: Able to slowly come down on fentanyl; currently at 125 mcg. Patient's HR is in 110s and RR is between 24-30. Will keep at 125 related to vital sign changes.
[2019-12-26] MEDS: fentaNYL Drip 2500mCg/250mlNS 250 ML IV SCH (04:00)
[2019-12-26 04:14] LABS: Basophils # (auto) 0.1 10 ^3/uL (0-0.2); Basophils % (auto) 0.1 % (0.0-2.0); Eosinophils # (auto) 0.1 10 ^3/uL (0-0.8); Lymphocytes % (auto) 0.8 % (10.0-50.0); Monocytes # (auto) 0.9 10 ^3/uL (0-1.3); Monocytes % (auto) 1.6 % (0.0-12.0)
[2019-12-26 04:17] LABS: Eosinophils % (auto) 0.1 % (0.0-7.0); Hematocrit 31.1 % (36.0-46.0); Hemoglobin 9.7 g/dL (12.2-16.2); Lymphocytes # (auto) 0.5 10 ^3/uL (0.4-5.4); Mean Corpuscular Hemoglobin 27.1 pg (28.0-32.0); Mean Corpuscular Hgb Conc. 31.2 g/dL (32.0-36.0); Mean Corpuscular Volume 86.9 fL (80.0-100.0); Neutrophils # (auto) 56.5 10 ^3/uL (1.6-8.6); Neutrophils % (auto) 97.4 % (37.0-80.0); Platelet Count (auto) 168 10^3/uL (140-450); Red Blood Cells 3.58 10^6/uL (4.0-5.20); Red Cell Distribution Width 19.2 % (11.8-14.3)
[2019-12-26 04:27] LABS: White Blood Cell 58.1 10^3/uL (4.4-10.8)
[2019-12-26 04:30] LABS: Albumin 1.2 g/dL (3.4-5.0); BUN/Creatinine Ratio 34.1; Calcium 11.2 mg/dL (8.5-10.1); Potassium 4.3 mmol/L (3.5-5.1)
[2019-12-26] MEDS: ACETAMINOPHEN 650 mg PER 20 mL UD GT PRN (04:30)
--- NOTE | 2019-12-26 04:30 | NUR ---
Patient bathe/linen change Patient given complete CHG bath. Skin integrity assessed for any changes. Linens and gown changed. Patient repositioned for comfort.
[2019-12-26 04:33] LABS: Bilirubin, Total 0.4 mg/dL (0.2-1.0); Total Protein 5.6 g/dL (6.4-8.2)
[2019-12-26] MEDS: METOCLOPRAMIDE HCL 5MG/ml INJ 2ml VIAL IV SCH ×3 (06:00→22:00)
[2019-12-26] MEDS: MEROPENEM 1GM IVPB 100 ML IV SCH ×3 (06:00→22:00)
--- NOTE | 2019-12-26 07:00 | NUR ---
REPORT RECEIVED FROM [employer] OPERATIONS ENGINEER NURSE. PATIENT RESTING IN BED AT THIS TIME. RESPIRATIONS EVEN BUT LABORED USING ACCESSORY MUSCLES. BED IN LOW POSITION. WILL CONTINUE TO MONITOR.
[2019-12-26] MEDS: IPRATROPIUM BROM 0.5 MG/2.5ML INH SOL NEB SCH ×3 (07:05→18:21)
[2019-12-26] MEDS: ALBUTEROL SULF 2.5 MG/0.5ML(0.5%) NEB SOLN NEB SCH ×3 (07:05→18:22)
[2019-12-26] MEDS: MIDAZOLAM DRIP 50 mg/50mL 50 ML IV SCH (08:34)
[2019-12-26] MEDS: EPINEPHrine HCL 250 ML IV SCH (08:55)
[2019-12-26] MEDS: AMIODARONE HCL 900 MG in DEXTROSE 500 ML IV SCH (09:29)
[2019-12-26] MEDS: NOREPINEPHRINE 8 MG/250ML KIT 250 ML IV SCH (10:00)
[2019-12-26] MEDS: PANTOPRAZOLE 40 MG/10 ML VIAL INJ IV SCH ×2 (10:20→22:00)
[2019-12-26] MEDS: HYDROCORTISONE SOD SUCC 100 MG/2ML INJ VIAL IV SCH ×2 (10:20→22:00)
[2019-12-26] MEDS: AMIODARONE HCL 200 MG TAB PO SCH ×2 (10:21→22:00)
[2019-12-26] MEDS: Jevity 1.2 Cal/Fiber 1 Liter GT SCH (10:21)
[2019-12-26] MEDS: FLUDROCORTISONE ACETATE 0.1 MG TAB PO SCH (10:21)
[2019-12-26] MEDS: MICAFUNGIN SODIUM 100 MG in SODIUM CHL 0.9% 100 ML IV SCH (10:24)
--- NOTE | 2019-12-26 10:50 | NUR ---
SPOKE TO DR VILLAREAL VIA TELEPHONE AND UPDATED ON PATIENT STATUS.
--- NOTE | 2019-12-26 14:20 | NUR ---
Respiratory note: CPAP TRIAL. PS 8 PEEP 5, 40%.
--- NOTE | 2019-12-26 14:20 | NUR ---
PATIENT PLACED ON CPAP TRAIL PER DR CLIFFORD. PATIENT SATURATIONS 96%, HEART RATE 110-120'S. WILL CONTINUE TO MONITOR.
--- NOTE | 2019-12-26 14:45 | NUR ---
CPAP STOPPED PATIENT PLACED BACK ON PREVIOUS VENTILATOR SETTINGS PER DR CLIFFORD PATIENTS HEART RATE INCREASED TO 130'S AND BP 150'S SYSTOLIC WELL LABORED BREATHING USING ACCESSORY MUSCLES. Addendum: 12/26/19 at 1727 by Etelvina Zurita RN EXPLAINED RATIONAL TO CHILDREN AT BEDSIDE AND REQUESTING TO SPEAK TO DR CLIFFORD
--- NOTE | 2019-12-26 14:45 | NUR ---
Respiratory note: PT PLACED BACK ON FULL SUPPORT. HR 135, RR 30, INCREASED WOB. RN AND DR. CLIFFORD INFORMED.
--- NOTE | 2019-12-26 15:18 | NUR ---
DR CLIFFORD AT BEDSIDE TO ASSESS PATIENT AND DISCUSS PLAN OF CARE WITH CHILDREN. ALL QUESTIONS AND CONCERNS ADDRESSED AT THIS TIME.
[2019-12-26] MEDS ORDERED: MIDAZOLAM HCL 1MG/1ML-2 ML VIAL ONE (16:38)
[2019-12-26] MEDS ORDERED: MIDAZOLAM HCL 1MG/1ML-2 ML VIAL IV ONE (16:45)
[2019-12-26] MEDS: VANCOMYCIN 1GM/250ML 250 ML IV SCH (17:29)
--- NOTE | 2019-12-26 19:45 | NUR ---
Opening Shift Note: Patient is intubated. ET size 8.0/23 @ the lip: PCV rate 24; pressure 26; FiO2 35%; PEEP 10. Pupils are 4 mm in size bilaterally/brisk but reactive to light; hypoactive cough/gag; flaccid extremities; spontaneous eye opening. Currently NSR to ST 120s; BP SBP 90s-100s. ET secretions are moderate in amount and are thin/pink tinged. Right nare NGT running Jevity @ 25 ml/hr related to previous high residuals; current residual is 10 ml. Fernandez inserted on 12/16/19 for strict I/O. Skin: right forearm scab BILLIE; sacral skin breakdown: barrier cream and optifoam changed; bilateral corners of mouth present with scabbing BILLIE. IV right tripe lumen IJ inserted on 12/16/19 running Fentanyl @ 100 mcg. Family updated on current plan of care and all questions answered. Will continue to round, reposition, and perform oral care per protocol/prn.
[2019-12-26] MEDS: PROPOFOL 100 ML IV SCH (20:32)
--- NOTE | 2019-12-26 21:30 | NUR ---
Vamsi restarted for SBP sustaining in the 80s and MAP below 65.
[2019-12-26] MEDS: PHENYLEPHRINE INJ 40 MG in SODIUM CHL 0.9% 250 ML IV SCH (21:33)
[2019-12-26] MEDS: VASOPRESSIN 50 UNITS in D5W 5% 247.5 ML IV SCH (22:00)
[2019-12-27] VITALS (99 sets, daily range): BP systolic 73–160; BP diastolic 35–91
[2019-12-27] MEDS: IPRATROPIUM BROM 0.5 MG/2.5ML INH SOL NEB SCH ×4 (00:10→18:42)
[2019-12-27] MEDS: ALBUTEROL SULF 2.5 MG/0.5ML(0.5%) NEB SOLN NEB SCH ×4 (00:10→18:42)
--- NOTE | 2019-12-27 05:00 | NUR ---
Patient bathe/linen change Patient given complete CHG bath. Skin integrity assessed for any changes. Linens and gown changed. Patient repositioned for comfort.
[2019-12-27] MEDS: VANCOMYCIN 1GM/250ML 250 ML IV SCH ×2 (05:30→18:00)
[2019-12-27] MEDS: MEROPENEM 1GM IVPB 100 ML IV SCH ×3 (06:15→22:17)
[2019-12-27] MEDS: METOCLOPRAMIDE HCL 5MG/ml INJ 2ml VIAL IV SCH ×3 (06:15→22:17)
--- NOTE | 2019-12-27 06:30 | NUR ---
Neuro status change: Patient is able to follow the simple commands of "move your fingers" on both the left and right side; "wiggle your toes" on both left and right side; patient is also able to sustain short periods of eye contact but without tracking. Daughter Carole updated on neuro status change. Fentanyl currently at 125 mcg; Vamsi @ 40 for blood pressure support. RR is between 24-27 but HR is elevated in 120s; O2 saturation is 94 %.
[2019-12-27] MEDS: MIDAZOLAM DRIP 50 mg/50mL 50 ML IV SCH (08:34)
--- NOTE | 2019-12-27 08:45 | NUR ---
FAMILY: Patient's to bedside, informed him that patient has had a positive change in neurological status. Informed that patient is able to follow commands and that he should go and speak to her. Patient's did not enter room despite encouragement to engage with patient. At this time is concerned regarding current strict visitation policy. instructed that due to the current situation with Covid-19, it is being recommended that visitation be limited and even prohibited at this time. states that by law a member of their family should be able to remain at the bedside, instructed that the current situation is not typical and that typical rules do not apply. Informed that the policy is coming from leaders in the community, states "I will talk to the principal person in charge and see." Reinforced that there is a chance that visitation will be completely restricted.
[2019-12-27] MEDS: EPINEPHrine HCL 250 ML IV SCH (08:55)
--- NOTE | 2019-12-27 09:00 | NUR ---
SEDATION VACATION; Patient currently on Fentanyl drip, will titrate down as tolerated by patient. Addendum: 12/27/19 at 0941 by Beata Leach RN Amended: Links added.
[2019-12-27] MEDS: AMIODARONE HCL 900 MG in DEXTROSE 500 ML IV SCH (09:29)
[2019-12-27] MEDS ORDERED: MAGNESIUM SULFATE 1GM/100ML 100 ML IV ONE (09:45)
[2019-12-27] MEDS: NOREPINEPHRINE 8 MG/250ML KIT 250 ML IV SCH (10:00)
[2019-12-27] MEDS: fentaNYL Drip 2500mCg/250mlNS 250 ML IV SCH ×2 (10:13→21:00)
[2019-12-27] MEDS: HYDROCORTISONE SOD SUCC 100 MG/2ML INJ VIAL IV SCH (10:21)
[2019-12-27] MEDS: PANTOPRAZOLE 40 MG/10 ML VIAL INJ IV SCH ×2 (10:21→22:17)
[2019-12-27] MEDS: AMIODARONE HCL 200 MG TAB PO SCH ×2 (10:22→22:17)
[2019-12-27] MEDS: FLUDROCORTISONE ACETATE 0.1 MG TAB PO SCH (10:22)
[2019-12-27] MEDS: MICAFUNGIN SODIUM 100 MG in SODIUM CHL 0.9% 100 ML IV SCH (10:47)
[2019-12-27] MEDS: DexMEDEtomidine 400 MCG in D5W 5% 96 ML IV SCH (11:54)
[2019-12-27 14:21] LABS: INR 1.33 (0.9-1.15); Partial Thromboplastin Time 29.3 sec (23.64-32.05)
--- NOTE | 2019-12-27 15:32 | NUR ---
Nutrition Followup Notes Pt wt is 68.4 kg today Pt sedated, intubated with no relatives at bedside when rounded this morning. Pt with no noted distress per RN doc. Noted EN support suspended d/t scheduled CPAP trial. Per MD doc, If this fails, the patient will need a tracheostomy and PEG tube placement. The patient's family still does not want her to be terminally weaned off or compassionate extubation. Prior to suspension pt was with EN support at 25 ml/hr rate, 50% PO intake , tolerated well. Will continue to monitor and follow up prn. Est energy needs: 9490-3308 kcals (25-30 kcal/kgBW) Est protein needs: 55-68 gms/day (0.8-1.0 gm/kgBW) Will continue to monitor and reassess prn. LABS: Ca 11.2 h, Tot Pro 5.6 L, Alb 1.2 L, Cr 1.44 L GI: No BM noted, Last BM on 12/15/19 per family, per RN doc BS: 12 high risk, skin tear at sacrum; Please refer to wound assessment report for full details. PES: Problem 1) Inadequate oral intake r/t pt NPO status, to receive EN support aeb pt sedated, intubated 2) Altered nutrition related lab values r/t current medical condition aeb hyponat, hypercalc, hypomagn, elev LFTs, severe hypoalb Comments 1) Gradually advance pt diet of EN support Jevity 1.2 @65 ml/hr goal rate as tolerated and per MD approval 2) Gradually advance pt to oral diet when medically feasible, as tolerated and per MD approval 3) If albumin continues trending down, consider Prostat 1 pkt BID 4) Continue current plan of care ADDITIONAL RECOMMENDATION: If EN support continues to be poorly tolerated over the next 48 hrs, consider alternate nutrition support. (NOTED: Currently consults are in progress 12/27/19)
--- NOTE | 2019-12-27 15:50 | NUR ---
AT BEDSIDE; Dr. Washington at bedside. Informed him that patient remained tachypneic and tachycardic despite addition of Precedex, and is not tolerant of basic cares and as such a weaning trial has not been performed.
--- NOTE | 2019-12-27 15:57 | NUR ---
FAMILY PHONE CALL: Received phone call from patient's daughter regarding next steps. Explained to her the rationale for limiting the amount of time the ETT remains in place, discussed care options of agreeing to performing trach and PEG. Also discussed with her compassionate weaning, and the process of termination of life support as well as comfort measures that are taken. Daughter states that at this time the family has not reached a decision. Encouraged her to have the family meet and determine how they would like to proceed. Daughter verbalized understanding.
[2019-12-27] MEDS: Jevity 1.2 Cal/Fiber 1 Liter GT SCH (20:00)
[2019-12-27] MEDS: PHENYLEPHRINE INJ 40 MG in SODIUM CHL 0.9% 250 ML IV SCH (20:00)
[2019-12-27] MEDS: ACETAMINOPHEN 650 mg PER 20 mL UD GT PRN (20:00)
--- NOTE | 2019-12-27 20:00 | NUR ---
ADMITTED WITH STAGE 4 LUNG CA. INTUBATED IN ER. HAVE BEEN UNABLE TO WEAN HER OFF THE VENTILATOR. WHEN WE LIGHTEN UP ON THE SEDATION, SHE GETS TACHYCARDIC, HYPOTENSIVE, DECREASES HER O2 SATURATION. RR GOES UP TO 30. INCREASED THE PRECEDEX TO HELP HER REST. SUCTIONED THE ETT FOR A SMALL AMOUNT OF WHITE SECRETIONS. ORAL CARE DONE. NGT RESIDUAL 60CC. JEVITY AT 20CC/HR. DISCARDED THE RESIDUAL. ABDOMEN SOFT. NO BM. KEATING IN PLACE DRAINING AN ADEQUATE AMOUNT OF YELLOW LIQUID WITH SEDIMENT. WAS OPENING HER EYES, MOVING HER FINGERS, TRACKING, BUT NOTHING TO COMMAND. LABILE BLOOD PRESSURE. FENTANYL ON. PRECEDEX ADDED TODAY. PLAN FOR CPAP TRIAL TOMORROW. 3+ GENERALIZED PITTING EDEMA. ON PRESSURE CONTROL VENTILATION. RR 30. FAMILY STATED THAT THEY ARE CONSIDERING A TRACH AND PEG FOR FUTURE PLANS. 2 CHILDREN ARE NOT IN AGREEMENT TO COMPASSIONATE TERMINAL WEANING.
[2019-12-27] MEDS: PROPOFOL 100 ML IV SCH (20:32)
[2019-12-27] MEDS ORDERED: PHENYLEPHRINE IV 250 ML IV ONE (20:56)
[2019-12-27] MEDS: VASOPRESSIN 50 UNITS in D5W 5% 247.5 ML IV SCH (22:00)
--- NOTE | 2019-12-27 22:00 | NUR ---
REPOSITIONED TO HER BACK. BLOOD PRESSURE OCCASIONALLY DIPS. IV SHOWS NO REDNESS OR SWELLING. SINUS TACHYCARDIA HAS DROPPED TO 103 WITH THE INCREASE IN PRECEDEX. RR 26. O2 SAT 97%. PATIENT IS RESTING. LUNGS COARSE. MODERATE AMOUNT OF WHITE SECRETIONS SUCTIONED FROM THE ETT. ORAL CARE DONE. MOISTURIZER TO LIPS. HAS A SCAB ON EACH SIDE OF MOUTH. ORAL CAVITY CLEAN. OLD SCAB NOTED ON RIGHT FOREARM. RADIAL PULSES WEAK. PEDAL PULSES STRONG. PITTING EDEMA PERSISTS. KEATING YELLOW WITH SEDIMENT.
[2019-12-28] VITALS (107 sets, daily range): BP systolic 81–159; BP diastolic 40–89
--- NOTE | 2019-12-28 | NUR ---
REPOSITIONED TO HER LEFT. ADJUSTING FENTANYL AND PRECEDEX TO ACHIEVE OUR GOALS. NEOSYNEPHRINE DRIP : WHEN SHE GOES TO SLEEP , SHE WILL DROP HER SYSTOLIC TO 90, MAKING IT DIFFICULT TO REGULATE AND STABILIZE THE SYSTOLIC BLOOD PRESSURE. LAVAGED AND SUCTIONED THE ETT FOR A MODERATE AMOUNT OF WHITE SECRETIONS. ORAL CARE DONE. ABDOMEN SOFT. TUBE FEEDING STILL AT 20CC/HR. RESIDUAL IS ONLY 10CC. PLAN IS FOR A CPAP TRIAL TODAY. EMANUEL. 3+ PITTING EDEMA PERSISTS. NO BM.
[2019-12-28] MEDS: IPRATROPIUM BROM 0.5 MG/2.5ML INH SOL NEB SCH ×4 (00:11→18:39)
[2019-12-28] MEDS: ALBUTEROL SULF 2.5 MG/0.5ML(0.5%) NEB SOLN NEB SCH ×4 (00:11→18:39)
--- NOTE | 2019-12-28 02:00 | NUR ---
NO CHANGE IN ASSESSMENT. PATIENT IS RESTED. FENTANYL OFF. ORAL CARE. ETT LAVAGE AND SUCTION.
[2019-12-28] MEDS: DexMEDEtomidine 400 MCG in D5W 5% 96 ML IV SCH ×2 (02:55→19:41)
--- NOTE | 2019-12-28 03:15 | NUR ---
AM LABS DRAWN
[2019-12-28 04:23] LABS: Hemoglobin 9.4 g/dL (12.2-16.2); Platelet Count (auto) 246 10^3/uL (140-450)
[2019-12-28 04:29] LABS: Hematocrit 29.9 % (36.0-46.0); Mean Corpuscular Hemoglobin 27.1 pg (28.0-32.0); Mean Corpuscular Hgb Conc. 31.5 g/dL (32.0-36.0); Mean Corpuscular Volume 86.1 fL (80.0-100.0); Red Blood Cells 3.48 10^6/uL (4.0-5.20); Red Cell Distribution Width 19.8 % (11.8-14.3)
[2019-12-28 04:51] LABS: Albumin 1.4 g/dL (3.4-5.0); BUN/Creatinine Ratio 42.2; Calcium 11.2 mg/dL (8.5-10.1); Potassium 3.7 mmol/L (3.5-5.1)
[2019-12-28 04:53] LABS: Bilirubin, Total 0.5 mg/dL (0.2-1.0); Total Protein 5.7 g/dL (6.4-8.2)
[2019-12-28 04:58] LABS: White Blood Cell 61.6 10^3/uL (4.4-10.8)
[2019-12-28 04:59] LABS: Basophils % (manual) 0 (0.0-2.0); Blast Cells 0; Eosinophils % (manual) 0 (0-7); INR 1.48 (0.9-1.15); Metamyelocytes % 0; Myelocytes % 0; Partial Thromboplastin Time 30.6 sec (23.64-32.05); Promyelocytes % 0; Reactive Lymphocytes 0
[2019-12-28] MEDS: VANCOMYCIN 1GM/250ML 250 ML IV SCH ×3 (05:00→21:26)
[2019-12-28] MEDS: METOCLOPRAMIDE HCL 5MG/ml INJ 2ml VIAL IV SCH ×3 (06:00→22:23)
[2019-12-28] MEDS: MEROPENEM 1GM IVPB 100 ML IV SCH ×3 (06:00→22:23)
[2019-12-28 06:54] LABS: Band Neutrophils % (manual) 12; Lymphocytes % (manual) 2 (10.0-50.0); Monocytes % (manual) 3 (0-12)
--- NOTE | 2019-12-28 08:00 | NUR ---
INITIAL/ONGOING ASSESSMENT: Patient presently off of Fentanyl drip, on Precedex. Patient appears to be in pain, noted to have facial grimacing and increased RR of 31. Patient repositioned, Fentanyl drip restarted at 25 mcg's.
[2019-12-28] MEDS: MIDAZOLAM DRIP 50 mg/50mL 50 ML IV SCH (08:34)
[2019-12-28] MEDS: EPINEPHrine HCL 250 ML IV SCH (08:55)
[2019-12-28] MEDS: AMIODARONE HCL 900 MG in DEXTROSE 500 ML IV SCH (09:29)
[2019-12-28] MEDS: NOREPINEPHRINE 8 MG/250ML KIT 250 ML IV SCH (10:00)
--- NOTE | 2019-12-28 11:30 | NUR ---
MD AT BEDSIDE: Dr. Martinez at bedside, spoke with patient's daughter Carole at length regarding future plan of care. Discussed with her that a decision needs to be made regarding placing a trach and peg vs. performing a compassionate wean. Dr. Martinez spoke with patient's daughter Carole at length and throughly explained the each process. All questions and concerns addressed at this time.
[2019-12-28] MEDS: MICAFUNGIN SODIUM 100 MG in SODIUM CHL 0.9% 100 ML IV SCH (12:00)
[2019-12-28] MEDS: AMIODARONE HCL 200 MG TAB PO SCH ×2 (12:00→22:23)
[2019-12-28] MEDS: FLUDROCORTISONE ACETATE 0.1 MG TAB PO SCH (12:00)
[2019-12-28] MEDS: PANTOPRAZOLE 40 MG/10 ML VIAL INJ IV SCH ×2 (12:00→22:23)
[2019-12-28] MEDS: PHENYLEPHRINE INJ 40 MG in SODIUM CHL 0.9% 250 ML IV SCH (13:40)
--- NOTE | 2019-12-28 14:00 | NUR ---
COOLING MEASURES; Rectal temp 100.6, ice packs in place to bilateral axillae.
--- NOTE | 2019-12-28 15:55 | NUR ---
AT BEDSIDE; Dr. Washington at bedside, attempted CPAP trail with at this time. Patient currently on Precedex and Fentanyl, failed CPAP within minutes of being placed on. RR increased to 40's, patient with retractive breathing pattern and HR increased to 140's. Patient placed back on previous settings by RT. Dr. Washington states to continue current sedations and can use PRN versed pushes to treat any breakthrough agitation.
--- NOTE | 2019-12-28 15:55 | NUR ---
PT ON PRECEDEX WAS PLACED ON CPAP TRIAL PER DR. CLIFFORD. DR. CLIFFORD AT BEDSIDE, PT IS LABORING BREATHING WITH A RR 40BPM. PT PLACED BACK ON PREVIOUS VENT SETTINGS. WILL CONTINUE TO MONITOR PT.
[2019-12-28] MEDS: Jevity 1.2 Cal/Fiber 1 Liter GT SCH (17:52)
--- NOTE | 2019-12-28 20:00 | NUR ---
ADMITTED ON 12/16/2019 WITH DYSPNEA. HISTORY OF STAGE 4 LUNG CANCER. INTUBATED IN ER. DIFFICULTY WEANING HER FROM THE VENTILATOR. WHEN WE LET HER UP FROM SEDATION, THE RR AND HEART RATE ARE EXTREMELY ELEVATED. CONTINUING ON SEDATION: FENTANYL AND PRECEDEX. IS AWAKE. FALLS ASLEEP READILY. HAD AN RN WHO SPEAKS CHINESE COMMUNICATED WITH HER. SHE NODDED HER HEAD THAT SHE UNDERSTOOD. NOT MOVING HER ARMS OR LEGS. REPOSITIONED TO HER RIGHT SIDE. ORAL CARE DONE. SCAB ON EACH SIDE OF HER MOUTH. HAS A RIJ TLC WITH A CURRENT DRESSING. SITE SHOWS NO REDNESS OR SWELLING. LUNGS ARE AMAZINGLY CLEAR RIGHT NOW. ORALLY INTUBATED. ETT TO VENTILATOR. RIGHT NARE SAL[place] SUMP WITH JEVITY AT 25CC/HR. RESIDUAL IS ONLY 5 CC. KEATING DRAINING YELLOW LIQUID WITH A SMALL AMOUNT OF SEDIMENT,3+ GENERALIZED EDEMA
[2019-12-28] MEDS: PROPOFOL 100 ML IV SCH (20:32)
[2019-12-28] MEDS: VASOPRESSIN 50 UNITS in D5W 5% 247.5 ML IV SCH (22:00)
[2019-12-28] MEDS: fentaNYL Drip 2500mCg/250mlNS 250 ML IV SCH (23:00)
[2019-12-29] VITALS (88 sets, daily range): BP systolic 74–195; BP diastolic 40–114
--- NOTE | 2019-12-29 | NUR ---
HAS BEEN VERY QUIET TONIGHT. HEART RATE IS UNDER BETTER CONTROL. HR 100. RR. 26. SBP WITHOUT VASOPRESSOR SUPPORT. LUNGS CLEAR. TEMPERATURE NORMAL.
[2019-12-29] MEDS: IPRATROPIUM BROM 0.5 MG/2.5ML INH SOL NEB SCH ×4 (00:03→18:36)
[2019-12-29] MEDS: ALBUTEROL SULF 2.5 MG/0.5ML(0.5%) NEB SOLN NEB SCH ×4 (00:03→18:36)
--- NOTE | 2019-12-29 02:00 | NUR ---
PATIENT WAKES UP, OPENS EYES. NO MOVEMENT OF EXTREMITIES. HEART RATE SO STABLE TONIGHT. NO FEVER. RR RANGE 24-31. SUCTIONING ETT Q 1 HOUR FOR A SMALL TO LARGE AMOUNT OF WHITE SECRETIONS. LUNG SOUNDS VARY. ABDOMEN SOFT. LOW NGT RESIDUAL. 3+ PITTING EDEMA IN ARMS AND LEGS PERSISTS. ARMS ELEVATED ON PILLOWS. REPOSITIONED TO BACK.
--- NOTE | 2019-12-29 03:31 | NUR ---
AM LABS DONE
--- NOTE | 2019-12-29 04:45 | NUR ---
CHG BATH. MORE AWAKE. WEAK MOVEMENTS OF ALL EXTREMITIES. DECREASING FENTANYL. LARGE AMOUNTS OF WHITE SECRETIONS FROM THE ETT.
[2019-12-29] MEDS: VANCOMYCIN 1GM/250ML 250 ML IV SCH (04:59)
[2019-12-29 05:00] LABS: Hemoglobin 8.9 g/dL (12.2-16.2); Mean Corpuscular Hgb Conc. 31.5 g/dL (32.0-36.0); Red Blood Cells 3.26 10^6/uL (4.0-5.20)
[2019-12-29 05:04] LABS: Hematocrit 28.2 % (36.0-46.0); Mean Corpuscular Hemoglobin 27.2 pg (28.0-32.0); Mean Corpuscular Volume 86.4 fL (80.0-100.0); Platelet Count (auto) 199 10^3/uL (140-450)
[2019-12-29 05:22] LABS: Calcium 11.3 mg/dL (8.5-10.1); Magnesium 1.3 mg/dL (1.6-2.6); Potassium 3.6 mmol/L (3.5-5.1)
[2019-12-29 05:41] LABS: Basophils % (manual) 0 (0.0-2.0); Blast Cells 0; Eosinophils % (manual) 0 (0-7); Lymphocytes % (manual) 0 (10.0-50.0); Metamyelocytes % 0; Monocytes % (manual) 0 (0-12); Myelocytes % 0; Promyelocytes % 0; Reactive Lymphocytes 0; Red Cell Distribution Width 20.1 % (11.8-14.3); White Blood Cell 47.5 10^3/uL (4.4-10.8)
[2019-12-29] MEDS: MEROPENEM 1GM IVPB 100 ML IV SCH ×3 (06:04→22:00)
[2019-12-29] MEDS: METOCLOPRAMIDE HCL 5MG/ml INJ 2ml VIAL IV SCH ×3 (06:05→22:00)
[2019-12-29] MEDS: PHENYLEPHRINE INJ 40 MG in SODIUM CHL 0.9% 250 ML IV SCH (06:20)
--- NOTE | 2019-12-29 06:29 | NUR ---
SPOKE WITH PAULA. SHE IS REQUESTING THAT THE PHYSICIAN ALLOW HER TO BE WITH HER AT THE BEDSIDE. IN TALKING WITH THE PATIENT , SHE IS ORIENTED. SHE IS FOLLOWING COMMANDS. ALTHOUGH SHE SPEAKS TAMAZIGHT, SHE UNDERSTOOD WHAT I WAS SAYING. HR IS 91. IT HAS NEVER BEEN THAT. SBP IS WITHOUT VASOPRESSOR SUPPORT. RR IS 24. O2 SAT 97%.
[2019-12-29 08:04] LABS: Band Neutrophils % (manual) 10
[2019-12-29] MEDS: MIDAZOLAM DRIP 50 mg/50mL 50 ML IV SCH (08:34)
[2019-12-29] MEDS: EPINEPHrine HCL 250 ML IV SCH (08:55)
--- NOTE | 2019-12-29 09:00 | NUR ---
SEDATION VACATION: Patient on Precedex at this time. Patient is tachypneic RR 35-40 with retractions and nasal flaring. Fentanyl drip resumed at 25 mcg's. Addendum: 12/29/19 at 1348 by Beata Leach RN Amended: Links added.
[2019-12-29] MEDS: AMIODARONE HCL 900 MG in DEXTROSE 500 ML IV SCH (09:29)
[2019-12-29] MEDS: NOREPINEPHRINE 8 MG/250ML KIT 250 ML IV SCH (10:00)
[2019-12-29] MEDS: PANTOPRAZOLE 40 MG/10 ML VIAL INJ IV SCH ×2 (10:52→22:00)
[2019-12-29] MEDS: MICAFUNGIN SODIUM 100 MG in SODIUM CHL 0.9% 100 ML IV SCH (10:53)
[2019-12-29] MEDS: AMIODARONE HCL 200 MG TAB PO SCH ×2 (10:54→21:42)
[2019-12-29] MEDS: FLUDROCORTISONE ACETATE 0.1 MG TAB PO SCH (10:54)
--- NOTE | 2019-12-29 11:15 | NUR ---
FAMILY; Spoke with patient's daughter Carole. Informed her of patient's condition up first assessment for the shift, informed her that at that time patient had an increased work of breathing and increased rate of breathing. Also informed Carole that patient nodded head yes when asked if she was in pain and that Fentanyl drip was re-started for patient comfort. Carole states that the family will call with their decision regarding how to proceed with patient care. Carole inquired on whether her father would be able to visit the patient today, informed her that no visitation policy remains in effect and that the situation would have to be discussed with an it administrator.
[2019-12-29] MEDS ORDERED: MIDAZOLAM HCL 1MG/1ML-2 ML VIAL IV PRN (12:45)
--- NOTE | 2019-12-29 20:00 | NUR ---
ADMITTED WITH LUNG CANCER . INTUBATED IN ER. HAVE HAD A GREAT DEAL OF DIFFICULTY WEANING HER OFF THE VENTILATOR. HR GOES TOO HIGH, RR GOES TOO HIGH, SOMETIMES THE O2 SATURATION DROPS. ALWAYS INCREASED DIFFICULTY WITH INCREASED EFFORT. WAKES UP, OPENS EYES, FACIAL EXPRESSION OF STRESS, SKIN TURNS RED. + COUGH AND GAG. LUNGS COARSE. SINUS TACHYCARDIA 120S NOW. NO VASOPRESSORS ON. FENTANYL DRIP AND VERSED IV PUSHES FOR SEDATION. BORDERLINE URINE OUTPUT PER KEATING. SEDIMENT IN URINE. NO BM SINCE ADMISSION. ON REGLAN. RIJ TLC SHOWS NO REDNESS OR SWELLING. SITE IS NOT RED. 3+ PITTING EDEMA IN ARMS AND LEGS. EVERY DAY IT INCREASES. SKIN TEAR ON SACRAL AREA. SMALL AMOUNT OF SEROSANGUINOUS DRNG ON OPTIFOAM DRESSING. RADIAL PULSES WEAK. PEDAL PULSES STRONG. CINDY AREA REDNESS.
--- NOTE | 2019-12-29 21:50 | NUR ---
PLACED A CALL TO DR VILLAREAL'S ANSWERING SERVICE. LEFT A MESSAGE CONCERNING THE CURRENT SITUATION OF TACHYCARDIA 140, SBP 189, RR 40. GAVE AMIODARONE SCHEDULED DOSE. GAVE VERSED. SUCTIONED THE ETT FOR A LARGE AMOUNT OF THICK WHITE SECRETIONS. INCREASED THE FENTANYL TO CALM HER RR DOWN.
--- NOTE | 2019-12-29 22:02 | NUR ---
HR 125, RR 25, SBP 93/54, NO FEVER
[2019-12-30] VITALS (67 sets, daily range): BP systolic 88–151; BP diastolic 51–85
--- NOTE | 2019-12-30 | NUR ---
WIDE AWAKE. NODS APPROPRIATELY. VSS. SUCTION ETT Q 1 HOUR FOR LARGE AMOUNTS OF WHITE SECRETIONS. REPOSITIONED TO HER RIGHT SIDE. ORAL CARE DONE.
[2019-12-30] MEDS: IPRATROPIUM BROM 0.5 MG/2.5ML INH SOL NEB SCH ×3 (00:50→11:54)
[2019-12-30] MEDS: ALBUTEROL SULF 2.5 MG/0.5ML(0.5%) NEB SOLN NEB SCH ×3 (00:50→11:54)
--- NOTE | 2019-12-30 02:00 | NUR ---
RESTING PEACEFULLY. AWAKE BUT NOT DISTRESSED. FOUND WITH THE FENTANYL AT 150MCG, I DID NOT HAVE TO USE THE FENTANYL. SINUS TACHYCARDIA
[2019-12-30] MEDS: fentaNYL Drip 2500mCg/250mlNS 250 ML IV SCH (02:47)
--- NOTE | 2019-12-30 04:00 | NUR ---
SAT AND TALKED TO HER ABOUT HER SITUATION, HOW SHE GOT HERE, HER SYMPTOMS AND OUR DIFFICULTIES IN WEANING HER FROM THE VENTILATOR.
--- NOTE | 2019-12-30 04:00 | NUR ---
SUCTION Q 1 HOUR FOR LARGE AMOUNTS OF WHITE SECRETIONS. HR RANGE 116-128. SBP STABLE. EMANUEL. CHG BATH AND LINEN CHANGE. ORAL CARE DONE.. DID SIT AND TALK WITH HER AGOUT ,,,,,,,,,,,,,,,,,,,,,,,,,,,,,,,,,,,,,,,,,,,,,,,,,,,,,,,,,,,,,,,,,,,,,,,,,,,,,,,,,,,,,,,,,,,, ,,,,,,,,,,,,,,,,,,,,,,,,,,,,,,,,,,,,,,,,,,,,,,,,,,,,,,,,,,,,,,,,,,,,,,,,,,,,,,,,,,,,,,,,,,,, ,,,,,,,,,,,,,,,,,,,,,,,,,,,,,,,,,,,,,,,,,,,,,,,,,,,,,,,,,,,,,,,,,,,,,,,,,,,,,,,,,,,,,,,,,,,, ,,,,,,,,,,,,,,,,,,,,,,,,,,,,,,,,,,,,,,,,,,,,,,,,,,,,,,,,,,,,,,,,,,,,,,,,,,,,,
[2019-12-30 04:24] LABS: Mean Corpuscular Hgb Conc. 32.2 g/dL (32.0-36.0)
[2019-12-30 04:29] LABS: Hematocrit 29.1 % (36.0-46.0); Hemoglobin 9.4 g/dL (12.2-16.2); Platelet Count (auto) 209 10^3/uL (140-450); Red Blood Cells 3.34 10^6/uL (4.0-5.20)
[2019-12-30 04:39] LABS: BUN/Creatinine Ratio 65.4; Calcium 11.5 mg/dL (8.5-10.1); Potassium 3.7 mmol/L (3.5-5.1)
[2019-12-30 05:05] LABS: Red Cell Distribution Width 20.1 % (11.8-14.3); White Blood Cell 52.8 10^3/uL (4.4-10.8)
[2019-12-30 05:07] LABS: Basophils % (manual) 0 (0.0-2.0); Blast Cells 0; Eosinophils % (manual) 0 (0-7); Metamyelocytes % 0; Myelocytes % 0; Promyelocytes % 0; Reactive Lymphocytes 0
--- NOTE | 2019-12-30 06:00 | NUR ---
REPOSITIONED. SUCTIONED ETT FOR A LARGE AMOUNT OF WHITE SECRETIONS . AWAKE. ORIENTED. WEAK.
[2019-12-30] MEDS: MEROPENEM 1GM IVPB 100 ML IV SCH (06:26)
[2019-12-30] MEDS: METOCLOPRAMIDE HCL 5MG/ml INJ 2ml VIAL IV SCH ×2 (06:26→14:29)
[2019-12-30 06:57] LABS: Band Neutrophils % (manual) 5; Lymphocytes % (manual) 2 (10.0-50.0); Monocytes % (manual) 3 (0-12)
--- NOTE | 2019-12-30 07:35 | NUR ---
OPENING SHIFT NOTE REPORT RECEIVED FROM WEEDER RN, MORNING ASSESSMENT PERFORMED AND DOCUMENTED. 64 YEAR OLD FEMALE, MECHANICALLY VENTILATED, HISTORY OF END STAGE LUNG CANCER WITH RECENT METS TO LIVER AND BONES. PER REPORT, SEVERAL SEDATION VACATIONS WERE UNSUCCESSFUL DUE TO VITAL SIGN CHANGES AND PATIENT NOT TOLERATING. AT THIS TIME, PATIENT OPENS EYES SPONTANEOUSLY, NO DISTRESS NOTED, RESPIRATIONS EVEN WITH SHALLOW BREATHS. PATIENT ABLE TO SQUEEZE NURSE HAND ON COMMAND, POSITIVE COUGH AND GAG REFLEX WITH COARSE LUNG SOUNDS ON LEFT AND EXTREMELY DIMINISHED LUNG SOUNDS ON RIGHT. PATIENT SINUS TACHYCARDIC UPON ASSESSMENT AND WAS TOLD IN REPORT THAT [facility] NURSE PRACTITIONER MD DR PLUMMER WAS AWARE. PATIENT CURRENTLY ON FENTANYL DRIP ONLY (see IV spreadsheet for details). KEATING CATHETER DRAINING CLEAR/YELLOW URINE TO GRAVITY. NO BM SINCE ADMISSION, ON REGLAN IVP. RIJ TLC SHOWS NO REDNESS OR SWELLING. 3+ PITTING EDEMA BILATERALLY TO BOTH UPPER AND LOWER EXTREMITIES. SKIN TEAR ON SACRAL AREA PRESENT WITH SMALL AMOUNT OF SEROSANGUINEOUS DRAINAGE ON OPTIFOAM DRESSING. COMFORT MEASURES PROVIDED, FALL AND SAFETY PRECAUTIONS IN PLACE, WILL CONTINUE TO MONITOR.
--- NOTE | 2019-12-30 08:30 | NUR ---
FAMILY AT BEDSIDE BETTINA, ICU DIRECTOR ALLOWED PATIENT FAMILY AT BEDSIDE DUE TO SPECIAL CIRCUMSTANCES.
[2019-12-30] MEDS: MIDAZOLAM DRIP 50 mg/50mL 50 ML IV SCH (08:34)
[2019-12-30] MEDS: EPINEPHrine HCL 250 ML IV SCH (08:55)
[2019-12-30] MEDS ORDERED: VANCOMYCIN 1GM/250ML 250 ML IV SCH (09:00)
[2019-12-30] MEDS: AMIODARONE HCL 900 MG in DEXTROSE 500 ML IV SCH (09:29)
[2019-12-30] MEDS: NOREPINEPHRINE 8 MG/250ML KIT 250 ML IV SCH (10:00)
[2019-12-30] MEDS: PANTOPRAZOLE 40 MG/10 ML VIAL INJ IV SCH (10:43)
[2019-12-30] MEDS: MAGNESIUM SULFATE 1GM/100ML 100 ML IV SCH ×2 (10:43→11:00)
[2019-12-30] MEDS: AMIODARONE HCL 200 MG TAB PO SCH (10:44)
[2019-12-30] MEDS: FLUDROCORTISONE ACETATE 0.1 MG TAB PO SCH (10:44)
[2019-12-30] MEDS: DexMEDEtomidine 400 MCG in D5W 5% 96 ML IV SCH (10:50)
--- NOTE | 2019-12-30 11:03 | NUR ---
PAGED DR VILLAREAL TO DISCUSS FAMILY CONCERNS AND QUESTIONS AND SCHEDULE FAMILY MEETING PER BETTINA, AWAITING RESPONSE.
--- NOTE | 2019-12-30 12:20 | NUR ---
TELEPHONE CONFERENCE WITH HOSPITALIST DR VILLAREAL RETURNED THIS NURSE'S CALL AND UPDATED ON PATIENT'S STATUS AND FAMILY QUESTIONS AND REQUESTS. DR VILLAREAL DISCUSSED PLAN OF CARE WITH PATIENT'S DAUGHTER BELINDA AND SPOUSE ANGLE IN BETT[place], ICU DIRECTOR'S OFFICE. ALL QUESTIONS AND CONCERNS ADDRESSED, FAMILY AGREED WITH EXTUBATING FAMILY AND WILL NOTIFY THIS NURSE WHEN READY. ORDERS RECEIVED FROM DR VILLAREAL FOR COMPASSIONATE EXTUBATION, CONTINUE CURRENT MEDICAL TREATMENT BUT NEW ORDERS WILL BE GIVEN. DR VILLAREAL ALSO ORDERED ATIVAN 2 MG IVP AND MORPHINE 4 MG IVP TO BE ADMINISTERED TOGETHER PRIOR TO EXTUBATION THEN ALTERNATE EVERY HOUR. ORDERS WILL BE CARRIED OUT. Addendum: 12/30/19 at 1732 by Kaylene Esquivel RN FAMILY DISCUSSED DNR STATUS WITH DR VILLAREAL VIA TELEPHONE AND TELEPHONE ORDERS RECEIVED AND VERIFIED BY BETTINA, ICU DIRECTOR.
--- NOTE | 2019-12-30 13:33 | NUR ---
SEDATION VACATION HELD FAMILY AT BEDSIDE - POSSIBLE TERMINAL WEAN. Addendum: 12/30/19 at 1340 by Kaylene Esquivel RN Amended: Links added.
[2019-12-30] MEDS ORDERED: MORPHINE SULFATE 4 MG/ML SYR/VIAL IV PRN (14:00)
[2019-12-30] MEDS ORDERED: HYOSCYAMINE SULF 0.125 MG ODT TAB PO PRN (14:00)
[2019-12-30] MEDS ORDERED: SODIUM CHLORIDE 0.9% 1,000 ML IV SCH (14:00)
[2019-12-30] MEDS ORDERED: LORazepam 2MG/ML-1ML VIAL IV PRN (14:00)
--- NOTE | 2019-12-30 14:17 | NUR ---
Nutrition Follow up Notes Pt wt is 68.4 kg. Pt sedated, intubated with no relatives at bedside when rounded this morning. Pt with no noted distress per grease maker head. Noted EN support held for possible terminal wean. Will continue to monitor and follow up prn. Est energy needs: 9130-4058 kcals (25-30 kcal/kgBW). Est protein needs: 55-68 gms/day (0.8-1.0 gm/kgBW) LABS 12/29: Cr 0.26 L, Glucose 55 L, Ca 11.5 H, Mg 1.3 L, ALT 12 L, alkaline phosphatase 234 H, TP 5.7 L, albumin 1.4 L. GI: No BM noted, Last BM on 12/15/19 per family, per RN doc BS: 12, high risk, skin erosion to L buttock, skin tear to sacrum. PES: 1) Inadequate oral intake r/t pt NPO status, to receive EN support aeb pt sedated, intubated 2) Altered nutrition related lab values r/t current medical condition aeb hyponat, hypercalc, hypomagn, elev LFTs, severe hypoalb Comments 1) If EN support to be resumed, consider Jevity 1.2 @65 ml/hr goal rate, as tolerated. 2) Consider Prostat 1 pkt BID. 3) Continue current plan of care.
[2019-12-30] MEDS: MICAFUNGIN SODIUM 100 MG in SODIUM CHL 0.9% 100 ML IV SCH (14:28)
--- NOTE | 2019-12-30 14:53 | NUR ---
OK TO EXTUBATE AT 3:00 PM PER FAMILY/SOCIAL SERVICE AT BEDSIDE, FAMILY OUT TO DISCUSS HOSPICE CARE WITH DATA SME. PATIENT'S SPOUSE ANGLE VERBALIZED OK TO EXTUBATE AT 3:00 PM. CALLED Awilda SOUTH TO BEDSIDE.
--- NOTE | 2019-12-30 15:30 | NUR ---
Respiratory note: PT TERMINALLY EXTUBATED PER DR ORNELAS S ORDER. PT PLACED ON 2L NC PER FAMILIES REQUEST. ZULAY JEFFRIES AT BEDSIDE.
--- NOTE | 2019-12-30 15:55 | NUR ---
MESSAGE LEFT FOR HOSPITALIST TO NOTIFY OF PATIENT EXPIRING, AWAITING RETURN CALL.
--- NOTE | 2019-12-30 16:00 | NUR ---
CONTACT [facility] OFFICE, MESSAGE LEFT, AWAITING RETURN CALL.
--- NOTE | 2019-12-30 16:20 | NUR ---
HOSPITALIST AT BESIDE DR VILLAREAL AWARE OF PATIENT EXPIRING, NO FURTHER ORDERS GIVEN.
--- NOTE | 2019-12-30 16:34 | NUR ---
CONTACT [facility] SPOKE WITH KATIE, PROVIDED REQUESTED INFORMATION. PER PATIENT HISTORY "WE WILL NOT BE PURSUING TISSUE DONATION".
--- NOTE | 2019-12-30 16:40 | NUR ---
RETURN CALL FROM INSURANCE AGENCY OWNER OFFICE PROVIDED DEPUTAshwini AREVALO WITH REQUIRED INFORMATION, BODY RELEASED BY INSURANCE AGENCY OWNER. INSURANCE AGENCY OWNER
--- NOTE | 2019-12-30 16:58 | NUR ---
D/C Planning Per SS consult for Hospice evaluation. Information and choice letter was given to family. Per family at bedside they did not have a hospice preference. Order was faxed to [facility]. Per Rosana with [facility] order was received and patient has been accepted. Transportation will be arrange upon d/c day.
--- NOTE | 2019-12-30 17:10 | NUR ---
ICU DIRECTOR AT BEDSIDE MULTIPLE FAMILY MEMBERS ENTERING ICU UNIT. BETTINA, ICU DIRECTOR ADDRESSED THE FAMILY AND MADE THEM AWARE THAT BABIES/CHILDREN WERE NOT ALLOWED IN HOSPITAL AT THIS TIME AND SHE ESCORTED FIVE OTHER FAMILY MEMBERS TO ICU TO SEE PATIENT AND FAMILY AT BEDSIDE. ICU DIRECTOR SPOKE WITH ALL FAMILY MEMBERS AND ALL AGREED THAT 1800 WILL BE THE TIME ALLOTTED TO VISIT THIS NURSE MUST PREPARE PATIENT FOR TRANSPORT [place] [facility] [place] PER FAMILY "[facility]".
--- NOTE | 2019-12-30 17:56 | NUR ---
ICU INGREDIENT MIXER AUTHORIZED FAMILY TO STAY UNTIL SHIFT CHANGE, FAMILY AWARE. WILL ENDORSE PREPARING PATIENT FOR TRANSFER TO [facility] [place] TO GRADER GREEN MEAT RN.
--- NOTE | 2019-12-30 18:18 | NUR ---
CONTACT MORTUARY PER FAMILY AND MORTUARY REQUEST, SPOKE WITH JACKIE AT [facility] ([facility] NOTIFIED OF PATIENT'S PASSING, PROVIDED REQUESTED INFORMATION - ESTIMATED ETA "PROBABLY IN THE MORNING".
--- NOTE | 2019-12-30 19:00 | NUR ---
FAMILY LEFT. BODY PREPARED FOR TRANSFER TO OUR [facility] [place].
--- NOTE | 2019-12-30 20:47 | NUR ---
[place] [facility] [place] ASSOCIATE PROGRAMMER AND TECH. FACE SHEET AND ORIGINAL FORM WITH THE GUARD.
--- NOTE | 2019-12-31 08:40 | NUR ---
re-assessment Patient Addendum: 12/31/19 at 0841 by Lakshmi Gold SS Amended: Links added.
== END 2019-12-30 20:45 | disposition expired | DRG 720 ==
LOC: EDBD 08:09 → ER 08:09 → OVERFLOW 08:10 → ICU WEST 13:54
PROVIDERS: ADMIT Internal Medicine; ATTEND Internal Medicine
PROC: 5A1955Z Respiratory Ventilation, Greater than 96 Consecutive Hours (ICD-10-PCS; principal; 2019-12-16)
PROC: 0BH17EZ Insertion of Endotracheal Airway into Trachea, Via Natural or Artificial Opening (ICD-10-PCS; 2019-12-16)
PROC: 30233N1 Transfusion of Nonautologous Red Blood Cells into Peripheral Vein, Percutaneous Approach (ICD-10-PCS; 2019-12-17)
PROC: 02HV33Z Insertion of Infusion Device into Superior Vena Cava, Percutaneous Approach (ICD-10-PCS; 2019-12-18)
DX: A41.9 Sepsis, unspecified organism (principal); I21.A1 Myocardial infarction type 2; J96.21 Acute and chronic respiratory failure with hypoxia; R65.21 Severe sepsis with septic shock; J18.9 Pneumonia, unspecified organism; G93.41 Metabolic encephalopathy; D61.1 Drug-induced aplastic anemia; J90 Pleural effusion, not elsewhere classified; J94.2 Hemothorax; C34.90 Malignant neoplasm of unspecified part of unspecified bronchus or lung; C78.1 Secondary malignant neoplasm of mediastinum; C78.7 Secondary malignant neoplasm of liver and intrahepatic bile duct; C79.51 Secondary malignant neoplasm of bone; K92.2 Gastrointestinal hemorrhage, unspecified; E87.2 Acidosis; N39.0 Urinary tract infection, site not specified; D50.9 Iron deficiency anemia, unspecified; E88.09 Other disorders of plasma-protein metabolism, not elsewhere classified; I48.0 Paroxysmal atrial fibrillation; D63.1 Anemia in chronic kidney disease; N18.9 Chronic kidney disease, unspecified; E03.9 Hypothyroidism, unspecified; R59.1 Generalized enlarged lymph nodes; D63.8 Anemia in other chronic diseases classified elsewhere; E83.42 Hypomagnesemia; I50.9 Heart failure, unspecified; I13.0 Hypertensive heart and chronic kidney disease with heart failure and stage 1 through stage 4 chronic kidney disease, or unspecified chronic kidney disease; K57.30 Diverticulosis of large intestine without perforation or abscess without bleeding; R00.0 Tachycardia, unspecified; E07.9 Disorder of thyroid, unspecified; Z82.49 Family history of ischemic heart disease and other diseases of the circulatory system; Z90.710 Acquired absence of both cervix and uterus
CPT/HCPCS: 31500; 36415; 36556; 36600; 70450; 71045; 71260; 74177; 76604; 80048; 80053; 80076; 80202; 81001; 82565; 82607; 82746; 82805; 83540; 83550; 83605; 83735; 83880; 84100; 84443; 84484; 85007; 85025; 85027; 85610; 85730; 86850; 86900; 86901; 86920; 87040; 87070; 87081; 87086; 87205; 87804; 93005; 93306; 93970; 94002; 94003; 94640; 96361; 96365; 96367; 96375; 99291; C9113; G0378; J0330; J1335; J1956; J2185; J2248; J2250; J2543; J2704; J3480; J7060